=== PATIENT | female | born 1935 | race Caucasian/White ===

== ENCOUNTER → 2017-12-17 | Outpatient (CLI) | payer MEDICARE ==
[~2017-12-17] MED LIST: CELE200C; ESCI10TA; ESCI5TAB PO; FURO20TA PO; OCCUVITE; OLME20TA19; OLME20TA19 PO; POTA10TA51 PO; TRAM50TA2 PO; ZOLP-158 PO
[2017-12-17 10:10] VITALS: BP 148/57
[2017-12-17 10:40] VITALS: BP 144/54
[2017-12-17 12:11] LABS: Calcium 8.7 mg/dL (8.5-10.1); Potassium 3.4 mmol/L (3.5-5.1)
[2017-12-17 12:14] LABS: Basophils # (auto) 0 uL; Basophils % (auto) 0.7 % (0.0-2.0); Eosinophils # (auto) 0.1 uL; Eosinophils % (auto) 1.4 % (0.0-7.0); Hematocrit 36.5 % (36.0-46.0); Hemoglobin 12.2 g/dL (12.2-16.2); INR 0.9 (0.9-1.15); Lymphocytes # (auto) 1.3 uL; Lymphocytes % (auto) 20.8 % (10.0-50.0); Mean Corpuscular Hemoglobin 31.7 pg (28.0-32.0); Mean Corpuscular Hgb Conc. 33.4 g/dL (32.0-36.0); Mean Corpuscular Volume 95.1 fL (80.0-100.0); Monocytes # (auto) 0.7 uL; Monocytes % (auto) 11.8 % (0.0-12.0); Neutrophils # (auto) 4.1 uL; Neutrophils % (auto) 65.3 % (37.0-80.0); Nucleated Red Blood Cells % 0.2 %; Partial Thromboplastin Time 24.3 sec (23.78-33.04); Platelet Count (auto) 325 10^3/uL (140-450); Prothrombin Time 9.7 sec (9.27-12.13); Red Blood Cells 3.84 10^6/uL (4.0-5.20); White Blood Cell 6.3 10^3/uL (4.4-10.8)
== END | disposition home or self-care (01) ==
LOC: Rad HDHVI 10:01 → MERGE 10:01
PROVIDERS: ATTEND Internal Medicine Cardiovascular Disease
DX: Z01.818 Encounter for other preprocedural examination (principal); I70.0 Atherosclerosis of aorta; I10 Essential (primary) hypertension; E03.9 Hypothyroidism, unspecified; E78.5 Hyperlipidemia, unspecified; E78.00 Pure hypercholesterolemia, unspecified; E11.9 Type 2 diabetes mellitus without complications; M06.9 Rheumatoid arthritis, unspecified; J44.9 Chronic obstructive pulmonary disease, unspecified
CPT/HCPCS: 36415; 71046; 80048; 85025; 85610; 85730; 93005; G0463

== ENCOUNTER 2017-12-19 07:16 | Day surgery (SDC) | payer MEDICARE ==
[~2017-12-19] VITALS: Ht 157.5 cm; Wt 54.9 kg
[2017-12-19] MEDS ORDERED: IOHEXOL 350 MG/ML 100ML IJ ONE (07:25)
[2017-12-19] MEDS ORDERED: LIDOCAINE 2%HCL (LOCAL ANESTH.) INJ 20ML MDV ONE (07:25)
[2017-12-19] MEDS ORDERED: HEPARIN IN NS 1000Units/500mL 1,500 ML ONE (07:26)
[2017-12-19] MEDS ORDERED: NALOXONE HCL 0.4 MG/ML VIAL IV ONE (07:45)
[2017-12-19] MEDS ORDERED: MIDAZOLAM HCL 5 MG/ML-1ML VIAL IV ONE (07:45)
[2017-12-19] MEDS ORDERED: fentaNYL CITRATE 100 MCG/2 ML VL IV ONE (07:45)
[2017-12-19] MEDS ORDERED: FLUMAZENIL 0.1 MG/ML INJ 10ML MDV IV ONE (07:45)
[2017-12-19] MEDS ORDERED: MIDAZOLAM HCL 1MG/1ML-2 ML VIAL ONE (07:53)
[2017-12-19] MEDS ORDERED: ANGIOMAX 250 MG VIAL IV ONE (08:57)
[2017-12-19] MEDS ORDERED: SODIUM CHL 0.9% 0 ML ONE (08:57)
[2017-12-19] MEDS ORDERED: NITROGLYCERIN 0.4MG/DOSE SPRAY 4.9GM ONE (09:10)
[2017-12-19] MEDS ORDERED: METOPROLOL TARTRATE 1MG/1ML-5ML VIAL IV ONE (09:18)
== END 2017-12-19 11:50 | disposition home or self-care (01) ==
LOC: CATH 07:16 → MERGE 07:16 → CATH 11:50
PROVIDERS: ATTEND Internal Medicine Cardiovascular Disease
DX: I34.0 Nonrheumatic mitral (valve) insufficiency (principal); I10 Essential (primary) hypertension; I35.1 Nonrheumatic aortic (valve) insufficiency; I50.30 Unspecified diastolic (congestive) heart failure; M19.90 Unspecified osteoarthritis, unspecified site; I34.1 Nonrheumatic mitral (valve) prolapse; K21.9 Gastro-esophageal reflux disease without esophagitis; Z91.02 Food additives allergy status
CPT/HCPCS: 93312; 93458; C1760; C1894; J1644; J2250; J3010; J7030; Q9967; 99152; 99153

== ENCOUNTER → 2018-03-21 | Outpatient (CLI) | payer MEDICARE ==
[2018-03-21 12:29] LABS: Urine Blood Negative /uL (Negative); Urine Specific Gravity 1.019 (1.001-1.035)
== END | disposition home or self-care (01) ==
LOC: CHF HDHVI 10:05
PROVIDERS: ATTEND Internal Medicine Cardiovascular Disease
DX: N39.0 Urinary tract infection, site not specified (principal); I10 Essential (primary) hypertension; M06.9 Rheumatoid arthritis, unspecified; Z90.710 Acquired absence of both cervix and uterus; Z90.49 Acquired absence of other specified parts of digestive tract
CPT/HCPCS: 81003; 87086

== ENCOUNTER → 2018-10-31 | Outpatient (CLI) | payer MEDICARE ==
[2018-10-31 16:30] LABS: Basophils # (auto) 0.1 uL; Basophils % (auto) 0.9 % (0.0-2.0); Eosinophils # (auto) 0.5 uL; Eosinophils % (auto) 6.6 % (0.0-7.0); Hematocrit 39.2 % (36.0-46.0); Hemoglobin 13.1 g/dL (12.2-16.2); Lymphocytes # (auto) 1.2 uL; Lymphocytes % (auto) 15.7 % (10.0-50.0); Mean Corpuscular Hemoglobin 31.9 pg (28.0-32.0); Mean Corpuscular Hgb Conc. 33.4 g/dL (32.0-36.0); Mean Corpuscular Volume 95.6 fL (80.0-100.0); Monocytes # (auto) 0.8 uL; Monocytes % (auto) 9.9 % (0.0-12.0); Neutrophils # (auto) 5.1 uL; Neutrophils % (auto) 66.9 % (37.0-80.0); Nucleated Red Blood Cells % 0.3 %; Platelet Count (auto) 357 10^3/uL (140-450); Red Blood Cells 4.09 10^6/uL (4.0-5.20); Red Cell Distribution Width 14.3 % (11.8-14.3); White Blood Cell 7.6 10^3/uL (4.4-10.8)
[2018-10-31 16:38] LABS: Albumin 3.2 g/dL (3.4-5.0); Calcium 9.4 mg/dL (8.5-10.1); Potassium 4.2 mmol/L (3.5-5.1)
[2018-10-31 16:42] LABS: BUN/Creatinine Ratio 20.3; Bilirubin, Direct 0.2 mg/dL (0-0.2); Bilirubin, Total 0.6 mg/dL (0.2-1.0); Total Protein 7.1 g/dL (6.4-8.2)
== END | disposition home or self-care (01) ==
LOC: LAB 12:02
PROVIDERS: ATTEND Internal Medicine Cardiovascular Disease
DX: E03.9 Hypothyroidism, unspecified (principal); E55.9 Vitamin D deficiency, unspecified; Z79.899 Other long term (current) drug therapy
CPT/HCPCS: 36415; 80048; 80061; 80076; 82306; 83036; 84443; 85025

== ENCOUNTER → 2018-11-03 | Outpatient (CLI) | payer MEDICARE ==
[2018-11-03 16:00] LABS: Urine Blood Negative /uL (Negative); Urine Specific Gravity 1.011 (1.001-1.035)
== END | disposition home or self-care (01) ==
LOC: LAB 11:26
PROVIDERS: ATTEND Internal Medicine Cardiovascular Disease
DX: N39.0 Urinary tract infection, site not specified (principal)
CPT/HCPCS: 81003; 87086

== ENCOUNTER → 2018-11-21 | Outpatient (CLI) | payer MEDICARE ==
[~2018-11-21] VITALS: Ht 157.5 cm; Wt 54.4 kg
[~2018-11-21] MED LIST changes: +ADENOSINE 46 MG in GIVE UN-DILUTED 0 ML IV ONE; +ADENOSINE 90 MG/30 ML INJ IV ONE
== END | disposition home or self-care (01) ==
LOC: Rad HDHVI 07:22
PROVIDERS: ATTEND Internal Medicine Cardiovascular Disease
DX: I08.8 Other rheumatic multiple valve diseases (principal); R06.02 Shortness of breath; I10 Essential (primary) hypertension; R10.9 Unspecified abdominal pain; N30.90 Cystitis, unspecified without hematuria; M54.16 Radiculopathy, lumbar region; R33.9 Retention of urine, unspecified; D64.9 Anemia, unspecified
CPT/HCPCS: 78452; 93005; 93306; 96374; 96375; A9500; J0153

== ENCOUNTER 2018-12-11 17:04 | Emergency (ER) | payer MEDICARE ==
[~2018-12-11] VITALS: Ht 157.5 cm; Wt 54.9 kg
[~2018-12-11 17:04] MED LIST changes: -ADENOSINE 46 MG in GIVE UN-DILUTED 0 ML IV ONE; -ADENOSINE 90 MG/30 ML INJ IV ONE
[2018-12-11 17:55] LABS: Basophils # (auto) 0.1 uL; Basophils % (auto) 1.2 % (0.0-2.0); Eosinophils # (auto) 0.6 uL; Eosinophils % (auto) 7.7 % (0.0-7.0); Hematocrit 38.3 % (36.0-46.0); Hemoglobin 12.8 g/dL (12.2-16.2); Lymphocytes # (auto) 1.4 uL; Lymphocytes % (auto) 20.1 % (10.0-50.0); Mean Corpuscular Hemoglobin 31.7 pg (28.0-32.0); Mean Corpuscular Hgb Conc. 33.3 g/dL (32.0-36.0); Mean Corpuscular Volume 95.2 fL (80.0-100.0); Monocytes # (auto) 0.8 uL; Monocytes % (auto) 11.3 % (0.0-12.0); Neutrophils # (auto) 4.3 uL; Neutrophils % (auto) 59.7 % (37.0-80.0); Nucleated Red Blood Cells % 0.1 %; Platelet Count (auto) 292 10^3/uL (140-450); Red Blood Cells 4.03 10^6/uL (4.0-5.20); Red Cell Distribution Width 15.2 % (11.8-14.3); White Blood Cell 7.2 10^3/uL (4.4-10.8)
[2018-12-11 18:09] LABS: Albumin 2.9 g/dL (3.4-5.0); Anion Gap 8 (5-15); Blood Urea Nitrogen 15 mg/dL (7-18); Calcium 8.4 mg/dL (8.5-10.1); Carbon Dioxide 24 mmol/L (21-32); Chloride 107 mmol/L (98-107); GFR African American 122 mL/min; GFR Non-African American 101 mL/min; Glucose 112 mg/dL (74-106); Potassium 3.5 mmol/L (3.5-5.1); Sodium 139 mmol/L (136-145)
[2018-12-11 18:18] LABS: Alanine Aminotransferase 20 U/L (13-56); Alkaline Phosphatase 94 U/L (45-117); Aspartate Aminotransferase 12 U/L (15-37); Bilirubin, Total 0.4 mg/dL (0.2-1.0); Total Protein 6.7 g/dL (6.4-8.2)
[2018-12-11 19:37] LABS: INR 0.92 (0.9-1.15); Partial Thromboplastin Time 23.5 sec (23.64-32.05)
[2018-12-11] MEDS ORDERED: traMADol HCL 50 MG TAB PO ONE (20:15)
[2018-12-11 21:11] LABS: Urine Bacteria FEW /hpf (None Seen); Urine Blood Negative /uL (Negative); Urine Hyaline Cast FEW /lpf (0 - 2); Urine Mucus FEW (None Seen); Urine Specific Gravity 1.011 (1.001-1.035); Urine WBC 11 /hpf (0 - 5)
[2018-12-11 22:35] VITALS: BP 151/65
--- NOTE | 2018-12-12 00:48 | NUR ---
PATIENT RETURNED TO THE ER WITH C/O HEMATOMA ON THE LEFT FOREARM FROM THE IV ACCESS. PATIENT HAS ABOUT A KIWI SIZE SWOLLEN AREA TO THE AREA WHICH WAS WRAPPED WITH A FAMILIA WRAP LIGHTLY. PATIENT WAS EDUCATED ON FAMILIA WRAP USE INCLUDING HOW TO TELL IF IT IS TO TIGHT AND WHEN TO REWRAP. PATIENT VERBALIZED THE ARM FEELING BETTER AFTER WRAPPED AND WAS ASSISTED OUT BY HER
== END 2018-12-11 22:38 | disposition home or self-care (01) ==
LOC: EDBD 17:04 → ER 17:04
DX: S50.12XA Contusion of left forearm, initial encounter (principal); I10 Essential (primary) hypertension; J45.909 Unspecified asthma, uncomplicated; M19.90 Unspecified osteoarthritis, unspecified site; Z90.710 Acquired absence of both cervix and uterus; Z90.89 Acquired absence of other organs; W19.XXXA Unspecified fall, initial encounter; Y93.89 Activity, other specified; Y99.8 Other external cause status; Y92.89 Other specified places as the place of occurrence of the external cause
CPT/HCPCS: 36415; 70450; 71045; 80053; 81001; 84484; 85025; 85610; 85730

== ENCOUNTER → 2019-01-19 | Outpatient (CLI) | payer MEDICARE ==
[2019-01-19 12:40] LABS: Urine Blood Negative /uL (Negative)
== END | disposition home or self-care (01) ==
LOC: LAB 10:33
PROVIDERS: ATTEND Internal Medicine Cardiovascular Disease
DX: N39.0 Urinary tract infection, site not specified (principal)
CPT/HCPCS: 81003

== ENCOUNTER → 2019-01-23 | Outpatient (CLI) | payer MEDICARE ==
[~2019-01-23] MED LIST changes: -ESCI10TA; +ESCI10TA PO; +MULT-775 OR; +VALS1TAB58 PO
[2019-01-23 09:25] VITALS: BP 120/48
[2019-01-23 09:55] VITALS: BP 140/48
--- NOTE | 2019-01-23 09:55 | NUR ---
Pre-Op Discharge Summary: See e-MAR for any medications given for this visit. Pre-op orders received and carried out per MD of EKG, LABS and chest xrays. Patient given a copy of EKG with instructions to go to [facility] out patient for further follow up care.
[2019-01-23 12:26] LABS: Basophils # (auto) 0.1 uL; Basophils % (auto) 0.7 % (0.0-2.0); Eosinophils # (auto) 0.2 uL; Hematocrit 38.4 % (36.0-46.0); Hemoglobin 12.9 g/dL (12.2-16.2); Lymphocytes # (auto) 1.3 uL; Lymphocytes % (auto) 17.1 % (10.0-50.0); Mean Corpuscular Hemoglobin 31.3 pg (28.0-32.0); Mean Corpuscular Hgb Conc. 33.4 g/dL (32.0-36.0); Mean Corpuscular Volume 93.4 fL (80.0-100.0); Monocytes # (auto) 0.8 uL; Monocytes % (auto) 10.7 % (0.0-12.0); Neutrophils # (auto) 5.4 uL; Neutrophils % (auto) 69.5 % (37.0-80.0); Nucleated Red Blood Cells % 0.1 %; Platelet Count (auto) 403 10^3/uL (140-450); Red Blood Cells 4.11 10^6/uL (4.0-5.20); Red Cell Distribution Width 14.6 % (11.8-14.3); White Blood Cell 7.8 10^3/uL (4.4-10.8)
[2019-01-23 12:27] LABS: INR < 0.93 (0.9-1.15); Partial Thromboplastin Time 25.4 sec (23.64-32.05)
[2019-01-23 12:46] LABS: BUN/Creatinine Ratio 33.8; Calcium 8.7 mg/dL (8.5-10.1); Potassium 3.9 mmol/L (3.5-5.1)
== END | disposition home or self-care (01) ==
LOC: CHF HDHVI 09:05
PROVIDERS: ATTEND Internal Medicine Cardiovascular Disease
DX: Z01.812 Encounter for preprocedural laboratory examination (principal); I35.0 Nonrheumatic aortic (valve) stenosis; D64.9 Anemia, unspecified; R79.1 Abnormal coagulation profile; I10 Essential (primary) hypertension
CPT/HCPCS: 36415; 80048; 85025; 85610; 85730; 93005; G0463

== ENCOUNTER 2019-01-26 11:36 | Day surgery (SDC) | payer MEDICARE ==
[~2019-01-26] VITALS: Ht 157.5 cm; Wt 54.4 kg
[~2019-01-26 11:36] MED LIST changes: -CELE200C; -ESCI5TAB PO; -FURO20TA PO; -MULT-775 OR; -OCCUVITE; -OLME20TA19; -OLME20TA19 PO; -POTA10TA51 PO
[2019-01-26] MEDS ORDERED: MIDAZOLAM HCL 1MG/1ML-2 ML VIAL IV ONE (13:00)
== END 2019-01-26 14:55 | disposition home or self-care (01) ==
LOC: CATH 11:36
PROVIDERS: ATTEND Internal Medicine Cardiovascular Disease
DX: I34.0 Nonrheumatic mitral (valve) insufficiency (principal); I70.0 Atherosclerosis of aorta; I10 Essential (primary) hypertension; E78.5 Hyperlipidemia, unspecified; M19.90 Unspecified osteoarthritis, unspecified site; I48.0 Paroxysmal atrial fibrillation; Z79.899 Other long term (current) drug therapy
CPT/HCPCS: 93312; J2250; J7040

== ENCOUNTER 2019-04-01 12:28 | Inpatient (IN) | payer MEDICARE | END 2019-04-10 19:19 | disposition home or self-care (01) | LOC: ER 12:28 → TELE 12:29 → TELE-WESTW 21:02 | PROC: 0TJB8ZZ Inspection of Bladder, Via Natural or Artificial Opening Endoscopic (ICD-10-PCS; principal; 2019-04-06 07:44) | PROC: BT1D1ZZ Fluoroscopy of Right Kidney, Ureter and Bladder using Low Osmolar Contrast (ICD-10-PCS; 2019-04-06 07:44) | PROC: 0TB68ZX Excision of Right Ureter, Via Natural or Artificial Opening Endoscopic, Diagnostic (ICD-10-PCS; 2019-04-06 07:44) | DX: A41.9 Sepsis, unspecified organism (principal); N39.0 Urinary tract infection, site not specified; E44.0 Moderate protein-calorie malnutrition; E87.1 Hypo-osmolality and hyponatremia; N13.30 Unspecified hydronephrosis; K57.32 Diverticulitis of large intestine without perforation or abscess without bleeding; R64 Cachexia; N18.3 Chronic kidney disease, stage 3 (moderate); I12.9 Hypertensive chronic kidney disease with stage 1 through stage 4 chronic kidney disease, or unspecified chronic kidney disease; D64.9 Anemia, unspecified; I34.0 Nonrheumatic mitral (valve) insufficiency; J45.909 Unspecified asthma, uncomplicated; K76.89 Other specified diseases of liver; Z90.710 Acquired absence of both cervix and uterus; R60.9 Edema, unspecified; I70.8 Atherosclerosis of other arteries; F32.9 Major depressive disorder, single episode, unspecified; M54.5 Low back pain; G89.29 Other chronic pain; N28.89 Other specified disorders of kidney and ureter ==

== ENCOUNTER → 2019-05-27 | Outpatient (CLI) | payer MEDICARE ==
[~2019-05-27] VITALS: Ht 30.5 cm; Wt 0.5 kg
[~2019-05-27] MED LIST changes: +CYANOCOBALAMIN (B-12) 1000 MCG/1 ML VIAL IM ONE; +CYANOCOBALAMIN (B-12) 1000 MCG/1 ML VIAL ONE; -ESCI10TA PO; +ESCI10TA53 PO; +MULT-775 PO; +MVI in SODIUM CHLORIDE 0.9% 1,000 ML IVB ONE; +MVI in SODIUM CHLORIDE 0.9% 1,010 ML ONE
[2019-05-27 10:09] VITALS: BP 122/51
--- NOTE | 2019-05-27 10:20 | NUR ---
IV insertion IV access obtained, via clean sterile technique by inserting 22 gauge catheter at LFA after 1 attempt by Jovanni PAGAN. IV secured properly. No trauma to site. Patient tolerated well. NOTE:
[2019-05-27 11:59] LABS: Urine Blood 1+ /uL (Negative); Urine Specific Gravity 1.014 (1.001-1.035)
--- NOTE | 2019-05-27 13:05 | NUR ---
Discharge Instructions See e-MAR for any mediations given with this visit. Patient education given on disease process. Patient verbalized understanding. Previous labs reviewed. Patient discharged in stable condition with after care instructions and follow up appointment. NOTE INFUSED 350MLS OF MVI BAG [id number]. PATIENT INSTRUCTED TO COME BACK TOMORROW TO CONTINUE INFUSION OF MVI. IV LEFT IN PLACE AND WRAPPED TO PREVENT INJURY. ADMINISTERED HEPARIN IVP BY PRIYA PAGAN. ADMINISTERED VITAMIN B IM BY CELSO GALLOWAY.
[2019-05-27 13:25] VITALS: BP 117/42
[2019-05-27 16:11] LABS: BUN/Creatinine Ratio 21.1; Calcium 8.9 mg/dL (8.5-10.1); Magnesium 1.8 mg/dL (1.6-2.6); Potassium 3.5 mmol/L (3.5-5.1)
== END | disposition home or self-care (01) ==
LOC: LAB 09:25
PROVIDERS: ATTEND Internal Medicine Cardiovascular Disease
DX: E86.0 Dehydration (principal); I13.0 Hypertensive heart and chronic kidney disease with heart failure and stage 1 through stage 4 chronic kidney disease, or unspecified chronic kidney disease; I50.9 Heart failure, unspecified; N18.3 Chronic kidney disease, stage 3 (moderate); I25.10 Atherosclerotic heart disease of native coronary artery without angina pectoris; I48.91 Unspecified atrial fibrillation; N39.0 Urinary tract infection, site not specified; E83.40 Disorders of magnesium metabolism, unspecified; R53.83 Other fatigue; F41.9 Anxiety disorder, unspecified; F32.9 Major depressive disorder, single episode, unspecified; E03.9 Hypothyroidism, unspecified; E44.0 Moderate protein-calorie malnutrition; G89.29 Other chronic pain; J45.909 Unspecified asthma, uncomplicated; M19.90 Unspecified osteoarthritis, unspecified site; Z90.49 Acquired absence of other specified parts of digestive tract; Z90.710 Acquired absence of both cervix and uterus; Z79.899 Other long term (current) drug therapy
CPT/HCPCS: 36415; 80048; 81003; 83735; 87086; 96365; 96366; 96372; G0463; J1642; J3411; J3420; J3475

== ENCOUNTER → 2019-05-28 | Outpatient (CLI) | payer MEDICARE ==
[~2019-05-28] VITALS: Ht 30.5 cm; Wt 0.5 kg
[~2019-05-28] MED LIST changes: -CYANOCOBALAMIN (B-12) 1000 MCG/1 ML VIAL IM ONE; -CYANOCOBALAMIN (B-12) 1000 MCG/1 ML VIAL ONE; +MAGNESIUM SULFATE 1GM/100ML 100 ML IV ONE; -MVI in SODIUM CHLORIDE 0.9% 1,000 ML IVB ONE; +MVI in SODIUM CHLORIDE 0.9% 500 ML IVB ONE
--- NOTE | 2019-05-28 11:25 | NUR ---
PT. TO [facility] CLINIC WITH SPOUSE FOR REPEAT MED INFUSION PER DR. BENAVIDES. EXISTING HEPLOCK, LEFT INNER WRIST, SITE BENIGN, FLUSHES EASILY WITH 10 CC .9NS. MD ORDERS RECEIVED AND CARRIED OUT. PT. STATE SLIGHT IMPROVEMENT IN SYMPTOMS SINCE YESTERDAY, BUT C/O SLIGHT NASAL CONGESTION.
[2019-05-28 11:30] VITALS: BP 137/53
--- NOTE | 2019-05-28 11:35 | NUR ---
MEDS: BANANA BAG STARTED AT 250 CC/HR PER MD ORDER.
--- NOTE | 2019-05-28 12:33 | NUR ---
MEDS: MGSO4 1 GM IVPB STARTED PER MD ORDER PT. RESTING WITH NO C/O.
--- NOTE | 2019-05-28 13:35 | NUR ---
MEDS: BANANA BAG COMPLETED AND MAG RIDER COMPLETED . PT. TOLERATED PROCEDURE WELL. SPOUSE AT BEDSIDE FOR SUPPORT. PREVIOUS LABS OF YESTERDAY REVIEWED WITH PT. AND SPOUSE, WITH ADDITIONAL FOLLOW UP ON UA C&S TO BE DONE TOMORROW, WITH FOLLOW UP CALL TO PT. BY THIS RN.
--- NOTE | 2019-05-28 13:45 | NUR ---
LABS: CBC DRAWN AND SENT POST INFUSION PER MD ORDER.
--- NOTE | 2019-05-28 13:55 | NUR ---
IV removal IV DC'd with sterile technique, catheter fully intact. Pressure dressing applied to site. Patient tolerated procedure well. Discharged with aftercare instructions per MD. NOTE:
[2019-05-28 14:00] VITALS: BP 150/59
--- NOTE | 2019-05-28 14:00 | NUR ---
Discharge Instructions See e-MAR for any mediations given with this visit. Patient education given on disease process. Patient verbalized understanding. Previous labs reviewed. Patient discharged in stable condition with after care instructions and follow up appointment. FOLLOW UP APPT. TO BE GIVEN TO PT TOMORROW AFTER LAB REVIEW WITH DR. BENAVIDES.
[2019-05-28 15:29] LABS: Basophils # (auto) 0.1 uL; Basophils % (auto) 0.7 % (0.0-2.0); Eosinophils # (auto) 1.1 uL; Eosinophils % (auto) 13.1 % (0.0-7.0); Hematocrit 27.9 % (36.0-46.0); Hemoglobin 9.4 g/dL (12.2-16.2); Lymphocytes # (auto) 1.7 uL; Lymphocytes % (auto) 20.4 % (10.0-50.0); Mean Corpuscular Hgb Conc. 33.6 g/dL (32.0-36.0); Mean Corpuscular Volume 89.3 fL (80.0-100.0); Monocytes # (auto) 0.8 uL; Neutrophils # (auto) 4.6 uL; Neutrophils % (auto) 55.8 % (37.0-80.0); Nucleated Red Blood Cells % 0.1 %; Platelet Count (auto) 420 10^3/uL (140-450); Red Blood Cells 3.12 10^6/uL (4.0-5.20); Red Cell Distribution Width 14.1 % (11.8-14.3); White Blood Cell 8.2 10^3/uL (4.4-10.8)
== END | disposition home or self-care (01) ==
LOC: CHF HDHVI 11:30
PROVIDERS: ATTEND Internal Medicine Cardiovascular Disease
DX: E86.0 Dehydration (principal); C68.0 Malignant neoplasm of urethra; I13.0 Hypertensive heart and chronic kidney disease with heart failure and stage 1 through stage 4 chronic kidney disease, or unspecified chronic kidney disease; I50.9 Heart failure, unspecified; N18.3 Chronic kidney disease, stage 3 (moderate); I25.10 Atherosclerotic heart disease of native coronary artery without angina pectoris; I48.91 Unspecified atrial fibrillation; D64.9 Anemia, unspecified; F41.9 Anxiety disorder, unspecified; E03.9 Hypothyroidism, unspecified; F32.9 Major depressive disorder, single episode, unspecified; G89.29 Other chronic pain; J45.909 Unspecified asthma, uncomplicated; M19.90 Unspecified osteoarthritis, unspecified site; E44.0 Moderate protein-calorie malnutrition; Z79.899 Other long term (current) drug therapy; Z90.710 Acquired absence of both cervix and uterus
CPT/HCPCS: 36415; 85025; 96365; 96366; 96368; G0463; J3411; J3475

== ENCOUNTER → 2019-06-12 | Outpatient (CLI) | payer MEDICARE ==
[~2019-06-12] MED LIST changes: -MAGNESIUM SULFATE 1GM/100ML 100 ML IV ONE; -MVI in SODIUM CHLORIDE 0.9% 1,010 ML ONE; -MVI in SODIUM CHLORIDE 0.9% 500 ML IVB ONE
[2019-06-12 16:00] LABS: Urine Blood 2+ /uL (Negative); Urine Specific Gravity 1.017 (1.001-1.035)
== END | disposition home or self-care (01) ==
LOC: LAB 13:59
PROVIDERS: ATTEND Internal Medicine Cardiovascular Disease
DX: N39.0 Urinary tract infection, site not specified (principal)
CPT/HCPCS: 81003; 87086

== ENCOUNTER → 2019-06-22 | Outpatient (CLI) | payer MEDICARE ==
[2019-06-22 16:32] LABS: Urine Blood 1+ /uL (Negative)
== END | disposition home or self-care (01) ==
LOC: LAB 11:17
PROVIDERS: ATTEND Internal Medicine Cardiovascular Disease
DX: N39.0 Urinary tract infection, site not specified (principal)
CPT/HCPCS: 81003; 87086

== ENCOUNTER → 2019-06-24 | Outpatient (CLI) | payer MEDICARE ==
[~2019-06-24] MED LIST changes: +cefTRIAXone 1GM/50ML D5W 50 ML IV ONE
--- NOTE | 2019-06-24 11:50 | NUR ---
PT. TO CLINIC FROM BACK OFFICE WITH ORDERS FROM DR. BENAVIDES FOR IV ABX. ORDERS RECEIVED AND CARRIED OUT. SPOUSE AT CHAIRSIDE FOR SUPPORT. PT. AOCorky, PWD.
[2019-06-24 11:55] VITALS: BP 122/60
--- NOTE | 2019-06-24 12:05 | NUR ---
IV insertion IV access obtained, via clean sterile technique by inserting 22 gauge catheter at after attempt(s). IV secured properly. No trauma to site. Patient tolerated procedure well. LABS SENT PER MD ORDER.
--- NOTE | 2019-06-24 12:16 | NUR ---
MEDS: ROCEPHIN 1 GM IVPB STARTED PER MD ORDER.
[2019-06-24 12:50] VITALS: BP 124/66
--- NOTE | 2019-06-24 12:50 | NUR ---
IV removal IV DC'd with sterile technique, catheter fully intact. Pressure dressing applied to site. Patient tolerated procedure well. Discharged with aftercare instructions per MD. NOTE: PT. TO FOLLOW UP WITH DR. KENNEDY SARAH.
[2019-06-24 16:00] LABS: Basophils # (auto) 0.1 uL; Basophils % (auto) 0.9 % (0.0-2.0); Eosinophils # (auto) 1.3 uL; Eosinophils % (auto) 13.7 % (0.0-7.0); Hematocrit 31.8 % (36.0-46.0); Hemoglobin 11.2 g/dL (12.2-16.2); Lymphocytes # (auto) 2.2 uL; Lymphocytes % (auto) 24.1 % (10.0-50.0); Mean Corpuscular Hemoglobin 31.5 pg (28.0-32.0); Mean Corpuscular Hgb Conc. 35.1 g/dL (32.0-36.0); Mean Corpuscular Volume 89.8 fL (80.0-100.0); Monocytes # (auto) 0.8 uL; Monocytes % (auto) 8.3 % (0.0-12.0); Neutrophils # (auto) 4.9 uL; Nucleated Red Blood Cells % 0.1 %; Platelet Count (auto) 426 10^3/uL (140-450); Red Blood Cells 3.54 10^6/uL (4.0-5.20); Red Cell Distribution Width 14.8 % (11.8-14.3); White Blood Cell 9.3 10^3/uL (4.4-10.8)
[2019-06-24 16:05] LABS: BUN/Creatinine Ratio 31.5; Calcium 9.3 mg/dL (8.5-10.1); Magnesium 2.2 mg/dL (1.6-2.6); Potassium 4.6 mmol/L (3.5-5.1)
== END | disposition home or self-care (01) ==
LOC: CHF HDHVI 11:50
PROVIDERS: ATTEND Internal Medicine Cardiovascular Disease
DX: N39.0 Urinary tract infection, site not specified (principal); I13.0 Hypertensive heart and chronic kidney disease with heart failure and stage 1 through stage 4 chronic kidney disease, or unspecified chronic kidney disease; N18.3 Chronic kidney disease, stage 3 (moderate); I50.9 Heart failure, unspecified; I25.10 Atherosclerotic heart disease of native coronary artery without angina pectoris; I48.91 Unspecified atrial fibrillation; D64.9 Anemia, unspecified; E83.40 Disorders of magnesium metabolism, unspecified; J45.909 Unspecified asthma, uncomplicated; F41.9 Anxiety disorder, unspecified; E03.9 Hypothyroidism, unspecified; F32.9 Major depressive disorder, single episode, unspecified; E44.0 Moderate protein-calorie malnutrition; G89.29 Other chronic pain; Z90.49 Acquired absence of other specified parts of digestive tract; Z90.710 Acquired absence of both cervix and uterus; Z79.899 Other long term (current) drug therapy
CPT/HCPCS: 36415; 80048; 83735; 85025; 96365; G0463; J0696

== ENCOUNTER → 2019-07-08 | Outpatient (CLI) | payer MEDICARE ==
[~2019-07-08] MED LIST changes: +IOHEXOL 350 MG/ML 100ML IJ ONE; -cefTRIAXone 1GM/50ML D5W 50 ML IV ONE
[2019-07-08 12:58] VITALS: BP 140/53
--- NOTE | 2019-07-08 13:05 | NUR ---
IV insertion IV access obtained BY BARBRA PAGAN, via clean sterile technique by inserting [22] gauge catheter at [R AC] after [1] attempt(s). IV secured properly. No trauma to site. Patient tolerated procedure well.
--- NOTE | 2019-07-08 14:22 | NUR ---
IV removal IV DC'd with sterile technique, catheter fully intact. Pressure dressing applied to site. Patient tolerated procedure well.
[2019-07-08 14:23] VITALS: BP 151/66
--- NOTE | 2019-07-08 14:23 | NUR ---
[facility] CL[facility]IC Discharge Instructions See e-MAR for any mediations given with this visit. Patient education given on disease process. Patient verbalized understanding. Previous labs reviewed. Patient discharged in stable condition with after care instructions and follow up appointment. NOTES PT EDUCATED ON IMPORTANCE OF INCREASING ORAL HYDRATION OVER THE NEXT 24 HOURS. PT/PT FAMILY VERBALIZED UNDERSTANDING.
== END | disposition home or self-care (01) ==
LOC: Rad HDHVI 12:31
PROVIDERS: ATTEND Internal Medicine Cardiovascular Disease
DX: I08.8 Other rheumatic multiple valve diseases (principal); I70.0 Atherosclerosis of aorta; I11.9 Hypertensive heart disease without heart failure; K76.89 Other specified diseases of liver; K57.90 Diverticulosis of intestine, part unspecified, without perforation or abscess without bleeding; K42.9 Umbilical hernia without obstruction or gangrene; E78.5 Hyperlipidemia, unspecified; K21.9 Gastro-esophageal reflux disease without esophagitis; N39.0 Urinary tract infection, site not specified; M54.5 Low back pain; M79.605 Pain in left leg; M79.604 Pain in right leg; R94.4 Abnormal results of kidney function studies; R10.9 Unspecified abdominal pain; R00.2 Palpitations; R06.02 Shortness of breath; R42 Dizziness and giddiness; Z90.710 Acquired absence of both cervix and uterus
CPT/HCPCS: 36415; 74177; 82565; 87086; 87088; 87186; 93306; G0463; Q9967

== ENCOUNTER → 2019-07-23 | Outpatient (CLI) | payer MEDICARE ==
[~2019-07-23] MED LIST changes: -IOHEXOL 350 MG/ML 100ML IJ ONE
[2019-07-23 11:54] LABS: Urine Blood 1+ /uL (Negative); Urine Specific Gravity 1.012 (1.001-1.035)
== END | disposition home or self-care (01) ==
LOC: LAB 10:23
PROVIDERS: ATTEND Internal Medicine Cardiovascular Disease
DX: N39.0 Urinary tract infection, site not specified (principal)
CPT/HCPCS: 81003; 87086

== ENCOUNTER → 2019-07-27 | Outpatient (CLI) | payer MEDICARE ==
[~2019-07-27] MED LIST changes: +LEVOFLOXACIN 500MG 100 ML IV ONE
[2019-07-27 12:40] VITALS: BP 157/71
[2019-07-27 13:53] VITALS: BP 115/50
== END | disposition home or self-care (01) ==
LOC: CHF HDHVI 12:49
PROVIDERS: ATTEND Internal Medicine Cardiovascular Disease
DX: N39.0 Urinary tract infection, site not specified (principal); I13.0 Hypertensive heart and chronic kidney disease with heart failure and stage 1 through stage 4 chronic kidney disease, or unspecified chronic kidney disease; N18.3 Chronic kidney disease, stage 3 (moderate); I50.9 Heart failure, unspecified; I25.10 Atherosclerotic heart disease of native coronary artery without angina pectoris; I48.91 Unspecified atrial fibrillation; K21.9 Gastro-esophageal reflux disease without esophagitis; E78.5 Hyperlipidemia, unspecified; J45.909 Unspecified asthma, uncomplicated; F41.9 Anxiety disorder, unspecified; E03.9 Hypothyroidism, unspecified; F32.9 Major depressive disorder, single episode, unspecified; G89.29 Other chronic pain; Z90.710 Acquired absence of both cervix and uterus; Z90.49 Acquired absence of other specified parts of digestive tract; Z79.899 Other long term (current) drug therapy
CPT/HCPCS: 96365; G0463; J1956

== ENCOUNTER → 2019-09-04 | Outpatient (CLI) | payer MEDICARE ==
[~2019-09-04] MED LIST changes: -LEVOFLOXACIN 500MG 100 ML IV ONE
[2019-09-04 16:21] LABS: Urine Blood Negative /uL (Negative); Urine Specific Gravity 1.016 (1.001-1.035)
== END | disposition home or self-care (01) ==
LOC: LAB 13:36
PROVIDERS: ATTEND Internal Medicine Cardiovascular Disease
DX: N39.0 Urinary tract infection, site not specified (principal)
CPT/HCPCS: 81003; 87086

== ENCOUNTER → 2019-09-25 | Outpatient (CLI) | payer MEDICARE | END | disposition home or self-care (01) | LOC: LAB 11:27 | PROVIDERS: ATTEND Internal Medicine Cardiovascular Disease | DX: R94.4 Abnormal results of kidney function studies (principal) | CPT/HCPCS: 36415; 82565 ==

== ENCOUNTER → 2019-09-28 | Outpatient (CLI) | payer MEDICARE ==
[~2019-09-28] MED LIST changes: +IOHEXOL 350 MG/ML 100ML IJ ONE; +READI-CAT 2 (BARIUM SULF)(VANILLA SMOOTHIE) 450ML ONE
[2019-09-28 09:10] VITALS: BP 136/86
[2019-09-28 10:17] VITALS: BP 139/56
== END | disposition home or self-care (01) ==
LOC: Rad HDHVI 08:57
PROVIDERS: ATTEND Internal Medicine Cardiovascular Disease
DX: M48.061 Spinal stenosis, lumbar region without neurogenic claudication (principal); M51.36 Other intervertebral disc degeneration, lumbar region; I70.0 Atherosclerosis of aorta; I70.8 Atherosclerosis of other arteries; N39.0 Urinary tract infection, site not specified; M54.5 Low back pain; R16.0 Hepatomegaly, not elsewhere classified; K76.0 Fatty (change of) liver, not elsewhere classified; K76.89 Other specified diseases of liver; K86.89 Other specified diseases of pancreas; K86.2 Cyst of pancreas; N26.1 Atrophy of kidney (terminal); N28.89 Other specified disorders of kidney and ureter; K57.30 Diverticulosis of large intestine without perforation or abscess without bleeding; K42.9 Umbilical hernia without obstruction or gangrene; M85.88 Other specified disorders of bone density and structure, other site
CPT/HCPCS: 74177; G0463; Q9967

== ENCOUNTER → 2019-11-13 | Outpatient (CLI) | payer MEDICARE ==
[~2019-11-13] MED LIST changes: -IOHEXOL 350 MG/ML 100ML IJ ONE; -READI-CAT 2 (BARIUM SULF)(VANILLA SMOOTHIE) 450ML ONE
[2019-11-13 12:02] LABS: Urine Blood Negative /uL (Negative); Urine Specific Gravity 1.014 (1.001-1.035)
== END | disposition home or self-care (01) ==
LOC: LAB 10:10
PROVIDERS: ATTEND Internal Medicine Cardiovascular Disease
DX: N39.0 Urinary tract infection, site not specified (principal)
CPT/HCPCS: 81003; 87086

== ENCOUNTER → 2019-11-30 | Outpatient (CLI) | payer MEDICARE | END | disposition home or self-care (01) | LOC: Rad HDHVI 12:13 | PROVIDERS: ATTEND Internal Medicine Cardiovascular Disease | DX: J34.2 Deviated nasal septum (principal); J32.9 Chronic sinusitis, unspecified | CPT/HCPCS: 70220 ==

== ENCOUNTER → 2019-12-28 | Outpatient (CLI) | payer MEDICARE ==
[2019-12-28 16:05] LABS: Urine Blood TRACE /uL (Negative); Urine Specific Gravity 1.014 (1.001-1.035)
== END | disposition home or self-care (01) ==
LOC: LAB 12:51
PROVIDERS: ATTEND Internal Medicine Cardiovascular Disease
DX: N39.0 Urinary tract infection, site not specified (principal)
CPT/HCPCS: 81003; 87086

== ENCOUNTER → 2019-12-29 | Outpatient (CLI) | payer MEDICARE ==
[~2019-12-29] VITALS: Ht 30.5 cm; Wt 49.9 kg
[~2019-12-29] MED LIST changes: +CYANOCOBALAMIN (B-12) 1000 MCG/1 ML VIAL IM ONE; +CYANOCOBALAMIN (B-12) 1000 MCG/1 ML VIAL ONE; +IOHEXOL 350 MG/ML 100ML IJ ONE; +READI-CAT 2 (BARIUM SULF)(VANILLA SMOOTHIE) 450ML ONE
[2019-12-29 09:35] VITALS: BP 129/54
[2019-12-29 11:20] VITALS: BP 131/83
== END | disposition home or self-care (01) ==
LOC: Rad HDHVI 09:26
PROVIDERS: ATTEND Internal Medicine Cardiovascular Disease
DX: R94.4 Abnormal results of kidney function studies (principal); R53.83 Other fatigue; R59.1 Generalized enlarged lymph nodes; K86.89 Other specified diseases of pancreas
CPT/HCPCS: 36415; 74177; 82565; 96372; G0463; J3420; Q9967

== ENCOUNTER 2020-03-15 10:01 | Inpatient (IN) | payer MEDICARE ==
[2020-03-10 14:17] LABS: Hemoglobin 9.8 g/dL (12.2-16.2); Mean Corpuscular Hemoglobin 29.3 pg (28.0-32.0); Mean Corpuscular Hgb Conc. 32.6 g/dL (32.0-36.0); Platelet Count (auto) 368 10^3/uL (140-450); Red Blood Cells 3.34 10^6/uL (4.0-5.20); Red Cell Distribution Width 14.5 % (11.8-14.3); White Blood Cell 6.3 10^3/uL (4.4-10.8)
[2020-03-10 14:21] LABS: Urine Bacteria NONE SEEN /hpf (None Seen); Urine Blood Negative /uL (Negative); Urine Hyaline Cast MOD /lpf (0 - 2); Urine Mucus FEW (None Seen); Urine Specific Gravity 1.012 (1.001-1.035); Urine WBC 12 /hpf (0 - 5)
[2020-03-10 14:23] LABS: Basophils % (manual) 0 (0.0-2.0); Blast Cells 0; Metamyelocytes % 0; Myelocytes % 0; Promyelocytes % 0; Reactive Lymphocytes 0
[2020-03-10 14:28] LABS: Albumin 3.2 g/dL (3.4-5.0); Calcium 9.1 mg/dL (8.5-10.1)
[2020-03-10 14:32] LABS: Bilirubin, Total 0.4 mg/dL (0.2-1.0); Total Protein 7.3 g/dL (6.4-8.2)
[2020-03-10 14:42] LABS: INR 0.97 (0.9-1.15); Partial Thromboplastin Time 24.5 sec (23.0-31.2)
[2020-03-10 17:01] LABS: Band Neutrophils % (manual) 1; Eosinophils % (manual) 17 (0-7); Lymphocytes % (manual) 27 (10.0-50.0); Monocytes % (manual) 6 (0-12)
[~2020-03-15] VITALS: Ht 157.5 cm; Wt 49.8 kg
[~2020-03-15 10:01] MED LIST changes: +CETI1TAB36 PO; -CYANOCOBALAMIN (B-12) 1000 MCG/1 ML VIAL IM ONE; -CYANOCOBALAMIN (B-12) 1000 MCG/1 ML VIAL ONE; -ESCI10TA53 PO; +HYDR-4833 PO; +HYDR200T36 PO; -IOHEXOL 350 MG/ML 100ML IJ ONE; -MULT-775 PO; -READI-CAT 2 (BARIUM SULF)(VANILLA SMOOTHIE) 450ML ONE
[2020-03-15] MEDS ORDERED: MANNITOL FTV 25% 12.5 GM/50 ML 50 ML IV ONE (10:46)
[2020-03-15] MEDS ORDERED: BUPIVACAINE 0.25% INJ 50ML VIAL ONE (10:46)
[2020-03-15] MEDS ORDERED: LIDOCAINE W/ EPINEPHRINE 1% 20ML VIAL ONE (10:46)
[2020-03-15] MEDS ORDERED: MORPHINE SULF INJ 2 MG/ML SYRINGE 1ML IV PRN (11:15)
[2020-03-15] MEDS ORDERED: NITROGLYCERIN 0.4 MG SL TAB SL PRN (11:15)
[2020-03-15] MEDS ORDERED: HYDROcodone-ACET 5/325MG TAB PO PRN (16:45)
--- NOTE | 2020-03-15 16:54 | NUR ---
Telemetry admit from [facility] YUN L admitted to Telemetry unit after SBAR received from LATASHA Arredondo. Patient oriented to TONYA EMERY RN primary RN, unit, room, bed, and unit policies regarding patient care and visiting hours. Patient now on continuous telemetry monitoring, tele box #27 and telemetry reading on arrival to unit is ST 107 bpm. Patient placed on bedside oxygen @ 2l n/c, weighed by bedscale and encouraged to call if they need something.Bed in lowest/locked position, bed rails up x2, call light within reach. All questions and concerns addressed, patient verbalized understanding.
[2020-03-15] MEDS ORDERED: hydrALAZINE HCL 20 MG/ML VL IV PRN (17:00)
[2020-03-15 17:01] VITALS: BP 168/88
[2020-03-15] MEDS: traMADol HCL 50 MG TAB PO PRN ×2 (20:45→22:38)
--- NOTE | 2020-03-15 20:53 | NUR ---
open note assumed care of pt, upon etnerinf room pt awake, alert and oriented x4. pt on 2L nc no distress noted or expressed. pt oriented to this nurse, updated on plan of care. pt reports some chronic back pain, to which this nurse will medicate per MD and MAR. pt bed locked, low and 2x rails up. call light in reach, this nurse to round q1hr and prn. pt encouraged to call as needed, for assistance or any concerns.
[2020-03-15 21:24] VITALS: BP 141/74
[2020-03-15] MEDS: ZOLPIDEM TARTRATE 5 MG TAB PO SCH (22:38)
[2020-03-16] MEDS: traMADol HCL 50 MG TAB PO PRN ×2 (04:32→12:55)
[2020-03-16 05:00] VITALS: BP 145/61
[2020-03-16 07:38] LABS: Urine Bacteria FEW /hpf (None Seen); Urine Blood 1+ /uL (Negative); Urine Mucus FEW (None Seen); Urine Specific Gravity 1.016 (1.001-1.035); Urine WBC 613 /hpf (0 - 5); Urine WBC Clumps PRESENT /hpf (None Seen)
--- NOTE | 2020-03-16 08:18 | NUR ---
OPENING SHIFT NOTE Assumed care of patient, awake and alert. No S/S of distress/SOB. Instructed on POC and to call for assist PRN, call light within reach, will continue to monitor for changes Q1hr and PRN.
[2020-03-16 09:00] VITALS: BP 153/73
[2020-03-16] MEDS ORDERED: METOPROLOL SUCCINATE XL 50 MG TAB PO SCH (10:00)
[2020-03-16 13:00] VITALS: BP 139/70
[2020-03-16] MEDS: METOPROLOL SUCCINATE XL 50 MG TAB PO SCH ×2 (13:30→21:10)
[2020-03-16] MEDS ORDERED: EPOETIN ALFA 2,000 UNIT/1 ML VIAL SC ONE (13:45)
[2020-03-16] MEDS ORDERED: EPOETIN ALFA 10,000 UNIT/1 ML VIAL SC ONE (14:00)
[2020-03-16 17:00] VITALS: BP 149/73
--- NOTE | 2020-03-16 19:30 | NUR ---
Opening Shift Note Assumed care of patient, awake and alert. No S/S of pain. Reported nausea. Day RN stated he still waiting for Dr. Pérez's order. Instructed on POC and to call for assist PRN, will continue to monitor for changes Q1hr and PRN.
--- NOTE | 2020-03-16 20:50 | NUR ---
Spoke with LATASHA Weston over the phone regarding patient's med as per Dr. Pérez. New orders received.
[2020-03-16] MEDS ORDERED: METOCLOPRAMIDE HCL 5MG/ml INJ 2ml VIAL IV PRN (21:00)
[2020-03-16] MEDS: ZOLPIDEM TARTRATE 5 MG TAB PO SCH (21:09)
[2020-03-16] MEDS: FERROUS SULFATE 300 MG/5 ML ORAL LIQ GT SCH (21:09)
[2020-03-16] MEDS: SODIUM CHLORIDE 0.9% 1,000 ML IV SCH (21:10)
[2020-03-16 22:00] VITALS: BP 132/64
[2020-03-17 05:18] VITALS: BP 133/61
--- NOTE | 2020-03-17 07:55 | NUR ---
Call to Pre-op This RN called Jerrica in pre-op, patient is not on the schedule for today. Will update patient on plan of care. Will continue to monitor Q1 hour and PRN.
--- NOTE | 2020-03-17 08:01 | NUR ---
Opening Shift Note Assumed care of patient, awake and alert and oriented to person, place, situation. No S/S of distress/SOB and pt. denies pain. Call light within reach, bedrails up x2. Instructed on POC and to call for stand by assist to the restroom, will continue to monitor for changes Q1hr and PRN.
[2020-03-17 08:28] LABS: Basophils # (auto) 0.1 10 ^3/uL (0-0.2); Basophils % (auto) 0.8 % (0.0-2.0); Eosinophils # (auto) 0.8 10 ^3/uL (0-0.8); Eosinophils % (auto) 11.6 % (0.0-7.0); Hematocrit 26.2 % (36.0-46.0); Hemoglobin 8.8 g/dL (12.2-16.2); Lymphocytes # (auto) 0.8 10 ^3/uL (0.4-5.4); Lymphocytes % (auto) 12.2 % (10.0-50.0); Mean Corpuscular Hemoglobin 30.2 pg (28.0-32.0); Mean Corpuscular Hgb Conc. 33.6 g/dL (32.0-36.0); Mean Corpuscular Volume 89.9 fL (80.0-100.0); Monocytes # (auto) 0.6 10 ^3/uL (0-1.3); Monocytes % (auto) 8.3 % (0.0-12.0); Neutrophils # (auto) 4.7 10 ^3/uL (1.6-8.6); Neutrophils % (auto) 67.1 % (37.0-80.0); Platelet Count (auto) 251 10^3/uL (140-450); Red Blood Cells 2.91 10^6/uL (4.0-5.20); Red Cell Distribution Width 14.2 % (11.8-14.3)
[2020-03-17 08:43] LABS: INR 0.98 (0.9-1.15)
[2020-03-17 08:45] LABS: BUN/Creatinine Ratio 21.2; Calcium 8.7 mg/dL (8.5-10.1); Potassium 3.6 mmol/L (3.5-5.1)
[2020-03-17 09:00] VITALS: BP 155/64
[2020-03-17] MEDS: FERROUS SULFATE 300 MG/5 ML ORAL LIQ GT SCH (09:21)
[2020-03-17] MEDS: METOPROLOL SUCCINATE XL 50 MG TAB PO SCH (09:22)
[2020-03-17] MEDS ORDERED: levoFLOXacin 500MG 100 ML IV SCH (10:00)
[2020-03-17] MEDS: SODIUM CHLORIDE 0.9% 1,000 ML IV SCH (10:20)
--- NOTE | 2020-03-17 12:15 | NUR ---
Call from Dr. Clint GRAYSON stated they will not be able to perform surgery on patient until next week, ok to discharge at this time. Will update Dr. Pérez. Will continue to monitor.
--- NOTE | 2020-03-17 12:59 | NUR ---
Dr. Pérez at bedside MD discussing plan of care with patient and this RN. Patient to discharge home today and follow up with Dr. Pérez out patient to reschedule surgery. Patient verbalized understanding. Will continue to monitor.
[2020-03-17 13:00] VITALS: BP 142/68
[2020-03-17 14:51] VITALS: BP 155/64
--- NOTE | 2020-03-17 15:20 | NUR ---
Prescriptions This RN called patients prescriptions into patients preferred pharmacy.
--- NOTE | 2020-03-17 16:23 | NUR ---
DISCHARGE Discharge instructions given as ordered. Encourage to follow up with PMD as instructed. All questions and concerns addressed. Patient verbalized understanding. Medication reconciliation form completed and copy given to patient. New prescriptions called in to preferred pharmacy, patient instructed to pick them up. IV removed with catheter intact, pressure dressing applied. Telemetry unit returned to ICU. Patient taken to vehicle via wheelchair with all personal belongings, accompanied by staff member. No signs or symptoms of distress noted at time of departure.
== END 2020-03-17 14:00 | disposition home or self-care (01) | DRG 871 ==
LOC: OVERFLOW 10:01 → EDSTATUS 10:45 → TELE-CENTR 16:48
PROVIDERS: ADMIT Urology; ATTEND Urology
DX: A41.9 Sepsis, unspecified organism (principal); E43 Unspecified severe protein-calorie malnutrition; I47.1 Supraventricular tachycardia; C79.00 Secondary malignant neoplasm of unspecified kidney and renal pelvis; E87.1 Hypo-osmolality and hyponatremia; C66.1 Malignant neoplasm of right ureter; N13.6 Pyonephrosis; Z68.1 Body mass index [BMI] 19.9 or less, adult; D64.9 Anemia, unspecified; I12.9 Hypertensive chronic kidney disease with stage 1 through stage 4 chronic kidney disease, or unspecified chronic kidney disease; I34.0 Nonrheumatic mitral (valve) insufficiency; N18.3 Chronic kidney disease, stage 3 (moderate); Z53.9 Procedure and treatment not carried out, unspecified reason; Z80.1 Family history of malignant neoplasm of trachea, bronchus and lung; Z82.49 Family history of ischemic heart disease and other diseases of the circulatory system; Z87.440 Personal history of urinary (tract) infections; Z90.5 Acquired absence of kidney; Z82.3 Family history of stroke; Z79.899 Other long term (current) drug therapy; Z20.828 Contact with and (suspected) exposure to other viral communicable diseases
CPT/HCPCS: 36415; 80048; 80053; 81001; 82962; 85007; 85025; 85027; 85610; 85730; 86850; 86900; 86901; 87086; G0378; J0885; J1956; J3490; Q4081

== ENCOUNTER 2020-03-22 10:20 | Inpatient (IN) | payer MEDICARE ==
[~2020-03-22] VITALS: Ht 157.5 cm; Wt 53.0 kg
[2020-03-22] MEDS ORDERED: LIDOCAINE W/ EPINEPHRINE 1 % INJ 30ML ONE (11:54)
[2020-03-22] MEDS ORDERED: MANNITOL FTV 25% 12.5 GM/50 ML 0 ML IV ONE (11:55)
[2020-03-22] MEDS ORDERED: BUPIVACAINE 0.25% INJ 50ML VIAL ONE (11:55)
[2020-03-22] MEDS ORDERED: LIDOCAINE W/ EPINEPHRINE 1% 20ML VIAL ONE (11:55)
[2020-03-22] MEDS ORDERED: LIDOCAINE 1% (LOCAL ANESTH.) PF 5ml SDV ONE (12:54)
[2020-03-22] MEDS ORDERED: SUCCINYLCHOLINE CHLORIDE 20 MG/ML 10ML VIAL IV ONE (12:54)
[2020-03-22] MEDS ORDERED: ETOMIDATE (2MG/ML) 20ML VIAL IV ONE ×2 (12:58→14:43)
[2020-03-22] MEDS ORDERED: ROCURONIUM 10MG/ML 10ML VIAL IV ONE ×2 (13:00→14:43)
[2020-03-22] MEDS ORDERED: PHENYLEPHRINE HCL 10 MG/ML VL ONE (13:01)
[2020-03-22] MEDS ORDERED: SODIUM CHLORIDE LOCK 10 ML ONE (13:01)
[2020-03-22] MEDS ORDERED: SODIUM CHLORIDE LOCK 20 ML ONE (14:43)
[2020-03-22] MEDS ORDERED: fentaNYL CITRATE 5 ML ONE (14:43)
[2020-03-22] MEDS ORDERED: fentaNYL CITRATE 100 MCG/2 ML VL ONE (14:43)
[2020-03-22] MEDS ORDERED: MIDAZOLAM HCL 1MG/1ML-2 ML VIAL ONE (14:43)
[2020-03-22] MEDS ORDERED: MORPHINE SULF(PF) 0.5MG/ML 10ML VIAL ONE (14:43)
[2020-03-22] MEDS: cefOXitin 2GM/100ML 100 ML IV ONE ×2 (14:55→14:56)
[2020-03-22] MEDS ORDERED: NEOSTIGMINE 1 MG/ML INJ (10mg/10ML VIAL) ONE (16:27)
[2020-03-22] MEDS ORDERED: GLYCOPYRROLATE 0.2 MG/ML 1ML VIAL ONE (16:27)
[2020-03-22] MEDS ORDERED: NEOMYCIN-BACITRACIN-POLYM 15GM TOP OINT TOP ONE (17:06)
[2020-03-22] MEDS: D5W/SOD CHL 0.45% 1,000 ML IV SCH (17:07)
[2020-03-22] MEDS ORDERED: NITROGLYCERIN 0.4 MG SL TAB SL PRN (17:15)
[2020-03-22] MEDS ORDERED: MORPHINE SULF INJ 2 MG/ML SYRINGE 1ML IV PRN ×2 (17:15→19:30)
[2020-03-22] MEDS ORDERED: HYDROmorphone HCL 2 MG/ML VL IV PRN ×2 (17:15→18:30)
[2020-03-22] MEDS ORDERED: diphenhdrAMINE HCL 50 MG/1 ML VL IV PRN (17:15)
[2020-03-22] MEDS ORDERED: ACETAMINOPHEN/CODEINE#3 (300/30mg) TAB PO PRN (17:15)
[2020-03-22] MEDS ORDERED: MORPHINE SULFATE 4 MG/ML SYR/VIAL IV PRN (18:30)
[2020-03-22] MEDS ORDERED: ONDANSETRON HCL 4 MG/2 ML VIAL IV PRN (18:30)
[2020-03-22] MEDS ORDERED: ACETAMINOPHEN IV 100 ML IV ONE (19:14)
[2020-03-22] MEDS ORDERED: ACETAMINOPHEN IV 1000 MG/100ML (10MG/ML) IV ONE (19:22)
[2020-03-22] MEDS: METOCLOPRAMIDE HCL 5MG/ml INJ 2ml VIAL IV ONE ×2 (19:35→19:36)
[2020-03-22] MEDS ORDERED: METOCLOPRAMIDE HCL 5MG/ml INJ 2ml VIAL ONE (19:36)
--- NOTE | 2020-03-22 20:51 | NUR ---
assumed care of pt, s/p surgical proceedure. who is alert and oriented, no c/o pain or discomfort. Pt has [address], 1 to rt lower abdomen, 1 to umbilical area and 3rd is midline above umbilicus. F/c patent to gravity, 2 IV both 20g, 1 to rt ac, the other is left fa. both flush freely, sites benign. Deep hose to bilateral lower extremities.
[2020-03-22 21:20] LABS: BUN/Creatinine Ratio 18.2; Calcium 8.2 mg/dL (8.5-10.1); Potassium 3.2 mmol/L (3.5-5.1)
[2020-03-22 22:34] VITALS: BP 134/56
[2020-03-22] MEDS: ZOLPIDEM TARTRATE 5 MG TAB PO SCH (22:42)
[2020-03-22] MEDS: ONDANSETRON HCL 4 MG/2 ML VIAL IV PRN (22:43)
[2020-03-23] MEDS: D5W/SOD CHL 0.45% 1,000 ML IV SCH ×3 (01:07→17:07)
[2020-03-23] MEDS: HYDROmorphone HCL 2 MG/ML VL IV PRN ×3 (03:53→16:22)
[2020-03-23] MEDS: ONDANSETRON HCL 4 MG/2 ML VIAL IV PRN ×2 (03:53→16:22)
--- NOTE | 2020-03-23 05:15 | NUR ---
call out to hospitalist r/t pt c/o indigestion, earlier pt c/o nausea and has been medicated 2 x this shift for nausea, no vomitus.
[2020-03-23 05:30] VITALS: BP 121/46
--- NOTE | 2020-03-23 05:39 | NUR ---
hospitalist returned call, no new orders at this time.
--- NOTE | 2020-03-23 06:42 | NUR ---
pt has been made aware that there are no new orders for her indigestion at this time
--- NOTE | 2020-03-23 07:30 | NUR ---
Opening shift note Patient AOx4. Surgical sight assessed minimal serosanguineous discharge noted. Patient updated on POC an do to call for assistance as needed. Deep hose in place. bed in low locked position. Ley patent, secured below waistline, draining clear yellow urine. Will continue care.
[2020-03-23 09:00] VITALS: BP 153/75
[2020-03-23] MEDS: LORATADINE 10 MG TAB PO SCH (10:35)
[2020-03-23] MEDS: hydrOXYchloroQUINE SULFATE 200 MG TAB PO SCH (10:35)
[2020-03-23] MEDS: VALSARTAN 80 MG TAB PO SCH (10:36)
[2020-03-23 13:00] VITALS: BP 122/52
[2020-03-23 17:00] VITALS: BP 134/78
--- NOTE | 2020-03-23 17:00 | NUR ---
paged back Hold order for 60 meq of potassium at this time per Dr. Pérez.
[2020-03-23 17:46] LABS: Basophils # (auto) 0 10 ^3/uL (0-0.2); Basophils % (auto) 0.4 % (0.0-2.0); Eosinophils # (auto) 0.2 10 ^3/uL (0-0.8); Eosinophils % (auto) 2.7 % (0.0-7.0); Hematocrit 25.7 % (36.0-46.0); Hemoglobin 8.5 g/dL (12.2-16.2); Lymphocytes # (auto) 0.7 10 ^3/uL (0.4-5.4); Lymphocytes % (auto) 9.9 % (10.0-50.0); Mean Corpuscular Hemoglobin 29.8 pg (28.0-32.0); Mean Corpuscular Volume 90.3 fL (80.0-100.0); Monocytes # (auto) 0.7 10 ^3/uL (0-1.3); Monocytes % (auto) 10.3 % (0.0-12.0); Neutrophils # (auto) 5.3 10 ^3/uL (1.6-8.6); Neutrophils % (auto) 76.7 % (37.0-80.0); Platelet Count (auto) 240 10^3/uL (140-450); Red Blood Cells 2.85 10^6/uL (4.0-5.20); Red Cell Distribution Width 14.8 % (11.8-14.3); White Blood Cell 6.9 10^3/uL (4.4-10.8)
--- NOTE | 2020-03-23 18:00 | NUR ---
Potassium Held/ MD paged Order for 60 meq of potassium held at this time as K+ at 1739 resulted at 3.9 MD paged at this time. Awaiting call back from .
[2020-03-23 18:09] LABS: Albumin 2.2 g/dL (3.4-5.0); Potassium 3.9 mmol/L (3.5-5.1)
[2020-03-23 18:12] LABS: Bilirubin, Total 0.5 mg/dL (0.2-1.0)
[2020-03-23] MEDS: POTASSIUM CHL 20MEQ/100ML 100 ML IV SCH (19:00)
[2020-03-23] MEDS: ZOLPIDEM TARTRATE 5 MG TAB PO SCH (21:59)
[2020-03-23 22:00] VITALS: BP 145/57
[2020-03-24] VITALS (9 sets, daily range): BP systolic 129–161; BP diastolic 60–74
[2020-03-24] MEDS: HYDROmorphone HCL 2 MG/ML VL IV PRN ×3 (00:18→13:00)
--- NOTE | 2020-03-24 00:48 | NUR ---
Message left via telephone for Dr. Pérez re. infusion of PRBCs as no consent yet signed by or pt.
--- NOTE | 2020-03-24 00:57 | NUR ---
responded back via telephone to hold transfusion until later in a.m.
[2020-03-24] MEDS: D5W/SOD CHL 0.45% 1,000 ML IV SCH ×3 (01:07→17:07)
[2020-03-24] MEDS: ONDANSETRON HCL 4 MG/2 ML VIAL IV PRN ×2 (05:59→13:00)
[2020-03-24] MEDS ORDERED: METO25TA5 PO (08:26)
[2020-03-24] MEDS ORDERED: NITR-52 PO (08:28)
[2020-03-24] MEDS: LORATADINE 10 MG TAB PO SCH (10:00)
[2020-03-24] MEDS: hydrOXYchloroQUINE SULFATE 200 MG TAB PO SCH (10:00)
[2020-03-24] MEDS: VALSARTAN 80 MG TAB PO SCH (10:01)
--- NOTE | 2020-03-24 12:30 | NUR ---
paged Dr. Pérez paged. Voicemail left regarding patient refusing DC at this time. Awaiting call back.
--- NOTE | 2020-03-24 14:24 | NUR ---
paged back Cancel DC order per Dr. Pérez. Will implement orders at this time.
--- NOTE | 2020-03-24 17:15 | NUR ---
paged Dr. Pérez paged regarding elevated BP of 161/74 and no PRN antihypertensive on EMAR. Awaiting call back.
--- NOTE | 2020-03-24 17:24 | NUR ---
Blood consents signed by MD/new orders Dr. Pérez at bedside. Risks and benefits regarding blood transfusion explained to patient at this time. Patient verbalized understanding and wishes to precede with transfusion. Consents signed at this time by patient, MD, and this RN as a witness. Per MD to infuse 1 unit of packed RBC as soon as possible. Existing order for transfusion on EMAR placed on 03/23/2020. Per no new order necessary at this time as transfusion was placed on HOLD last night do to consents not being signed. New orders received at this time for PRN antihypertensive, and scheduled BP medication. Please check EMAR for more information regarding new orders. Will implement new orders at this time and continue care.
[2020-03-24] MEDS: cloNIDine HCL 0.1 MG TAB PO PRN (17:50)
--- NOTE | 2020-03-24 18:00 | NUR ---
IV insertion IV access obtained, via clean sterile technique by inserting 22 gauge catheter at forearm after 1 attempt. IV secured properly. No trauma to site. Patient tolerated well.
--- NOTE | 2020-03-24 18:38 | NUR ---
Blood Transfusion initiated Blood transfusion initiated at this time after risks and benefits explained by MD and reinforced by this RN. VS: T- 98.8, HR-93, BP-- 144/67, O2- 93% on room air.
--- NOTE | 2020-03-24 19:20 | NUR ---
Closing shift note Patient currently resting in bed AOx4. Transfusing 1 unit of packed RBC at this time. No s/s of distress noted. Endorsed care to Jayna PAGAN.
[2020-03-24] MEDS: ZOLPIDEM TARTRATE 5 MG TAB PO SCH (22:03)
[2020-03-24] MEDS: METOPROLOL TARTRATE 25 MG TAB PO SCH (22:04)
[2020-03-25] MEDS: D5W/SOD CHL 0.45% 1,000 ML IV SCH ×3 (01:07→16:10)
[2020-03-25 05:00] VITALS: BP 126/65
[2020-03-25 05:58] LABS: Basophils # (auto) 0 10 ^3/uL (0-0.2); Basophils % (auto) 0.7 % (0.0-2.0); Eosinophils # (auto) 0.8 10 ^3/uL (0-0.8); Eosinophils % (auto) 12.1 % (0.0-7.0); Hematocrit 25.5 % (36.0-46.0); Hemoglobin 8.7 g/dL (12.2-16.2); Lymphocytes # (auto) 0.9 10 ^3/uL (0.4-5.4); Lymphocytes % (auto) 12.7 % (10.0-50.0); Mean Corpuscular Hemoglobin 30.8 pg (28.0-32.0); Mean Corpuscular Hgb Conc. 34.3 g/dL (32.0-36.0); Mean Corpuscular Volume 89.7 fL (80.0-100.0); Monocytes # (auto) 0.5 10 ^3/uL (0-1.3); Monocytes % (auto) 7.5 % (0.0-12.0); Neutrophils # (auto) 4.6 10 ^3/uL (1.6-8.6); Platelet Count (auto) 213 10^3/uL (140-450); Red Blood Cells 2.84 10^6/uL (4.0-5.20); Red Cell Distribution Width 14.5 % (11.8-14.3); White Blood Cell 6.8 10^3/uL (4.4-10.8)
[2020-03-25 06:17] LABS: Potassium 3.7 mmol/L (3.5-5.1)
[2020-03-25 06:40] LABS: BUN/Creatinine Ratio 20.3; Bilirubin, Total 0.6 mg/dL (0.2-1.0); Calcium 8.1 mg/dL (8.5-10.1); Total Protein 5.3 g/dL (6.4-8.2)
--- NOTE | 2020-03-25 08:15 | NUR ---
Opening Shift Note Assumed care of patient, awake, and alert. No S/S of distress/SOB or pain. Bed in lowest/locked position, bed rails up x2, call light within reach. Instructed on POC and to call for assist PRN. Will continue to monitor for changes Q1hr and PRN.
[2020-03-25] MEDS: METOPROLOL TARTRATE 25 MG TAB PO SCH ×2 (08:43→22:07)
[2020-03-25] MEDS: LORATADINE 10 MG TAB PO SCH (08:43)
[2020-03-25] MEDS: hydrOXYchloroQUINE SULFATE 200 MG TAB PO SCH (08:43)
[2020-03-25] MEDS: HYDROmorphone HCL 2 MG/ML VL IV PRN ×2 (08:51→17:27)
[2020-03-25 09:00] VITALS: BP 145/72
--- NOTE | 2020-03-25 12:03 | NUR ---
Nutrition Assessment Notes please see attached link for complete assessment [employer] needs BW 53 [id number] kcal (25-30 kcal/kg BW), Est protein needs: 53-69 g (1.0-1.3g/kg BW r/t hypoalb). Will reassess prn. Addendum: 03/25/20 at [address] Amended: Links added.
[2020-03-25 12:46] VITALS: BP 116/54
[2020-03-25 17:24] VITALS: BP 144/77
[2020-03-25] MEDS: NEOSTIGMINE 1 MG/ML INJ (10mg/10ML VIAL) SC SCH ×2 (17:26→22:07)
--- NOTE | 2020-03-25 19:44 | NUR ---
Opening Shift Note Received report and assumed care of patient. Patient is awake and alert. No signs or symptoms of distress noted, patient currently denies pain. Instructed patient on plan of care and to call for assistance as needed. Will continue to monitor.
--- NOTE | 2020-03-25 20:40 | NUR ---
IV removal/insertion 22g IV to the Right forearm infiltrated and 20g IV to the Right AC leaking. Discontinued IVs with clean technique, catheter tips fully intact. Pressure dressing applied to site. NOTE:Inserted 22g IV to the Left wrist. Patient tolerated well.
[2020-03-25 22:00] VITALS: BP 153/70
[2020-03-25] MEDS: ZOLPIDEM TARTRATE 5 MG TAB PO SCH (22:07)
--- NOTE | 2020-03-25 22:07 | NUR ---
Patient Refused Medication Patient refusing neostigmine injection, patient states she feels like she may have bowel movement. Educated patient regarding risks and benefits of medication. Patient verbalized understanding, continues to refuse, states she will take AM dose. Will continue to monitor.
[2020-03-26] MEDS: NEOSTIGMINE 1 MG/ML INJ (10mg/10ML VIAL) SC SCH ×2 (02:00→05:43)
[2020-03-26 05:00] VITALS: BP 151/75
[2020-03-26 08:23] LABS: Basophils # (auto) 0 10 ^3/uL (0-0.2); Basophils % (auto) 0.6 % (0.0-2.0); Eosinophils # (auto) 0.9 10 ^3/uL (0-0.8); Eosinophils % (auto) 13.1 % (0.0-7.0); Hematocrit 29.2 % (36.0-46.0); Hemoglobin 10.2 g/dL (12.2-16.2); Lymphocytes # (auto) 0.8 10 ^3/uL (0.4-5.4); Lymphocytes % (auto) 12.2 % (10.0-50.0); Mean Corpuscular Hgb Conc. 34.8 g/dL (32.0-36.0); Mean Corpuscular Volume 89.1 fL (80.0-100.0); Monocytes # (auto) 0.5 10 ^3/uL (0-1.3); Monocytes % (auto) 7.6 % (0.0-12.0); Neutrophils # (auto) 4.6 10 ^3/uL (1.6-8.6); Neutrophils % (auto) 66.5 % (37.0-80.0); Platelet Count (auto) 259 10^3/uL (140-450); Red Blood Cells 3.28 10^6/uL (4.0-5.20); Red Cell Distribution Width 14.5 % (11.8-14.3); White Blood Cell 6.9 10^3/uL (4.4-10.8)
[2020-03-26 08:33] LABS: Albumin 2.1 g/dL (3.4-5.0); Calcium 8.3 mg/dL (8.5-10.1); Potassium 3.3 mmol/L (3.5-5.1)
[2020-03-26 08:37] LABS: BUN/Creatinine Ratio 16.7; Bilirubin, Total 0.5 mg/dL (0.2-1.0); Total Protein 5.7 g/dL (6.4-8.2)
[2020-03-26 09:00] VITALS: BP_SYST 132; BP_SYST 150; BP_DIAS 75; BP_DIAS 86
[2020-03-26] MEDS: hydrOXYchloroQUINE SULFATE 200 MG TAB PO SCH (09:45)
[2020-03-26] MEDS: LORATADINE 10 MG TAB PO SCH (09:45)
[2020-03-26] MEDS: METOPROLOL TARTRATE 25 MG TAB PO SCH ×2 (09:45→21:56)
[2020-03-26] MEDS: HYDROmorphone HCL 2 MG/ML VL IV PRN (12:05)
--- NOTE | 2020-03-26 12:30 | NUR ---
Prune juice given for constipation.
[2020-03-26 13:00] VITALS: BP 142/79
--- NOTE | 2020-03-26 13:23 | NUR ---
Dr. Pérez paged regarding K 3.3 and last BM 03/22. Awaiting to call back.
--- NOTE | 2020-03-26 13:30 | NUR ---
Received new orders from Dr. Pérez, noted and carried it out.
[2020-03-26] MEDS: POTASSIUM CHL 20MEQ/100ML 100 ML IV SCH ×2 (13:58→16:45)
[2020-03-26] MEDS ORDERED: LACTULOSE 20Gm/30ML SOLN PO PRN (14:00)
--- NOTE | 2020-03-26 14:04 | NUR ---
Patient ambulates with PT using a walker. Will DC mark per MD order.
[2020-03-26] MEDS: ONDANSETRON HCL 4 MG/2 ML VIAL IV PRN (14:11)
--- NOTE | 2020-03-26 14:20 | NUR ---
Mark catheter dc'd Order to discontinue mark catheter. Mark dc'd with clean technique following deflation of balloon. Patient tolerated well with no complaints of pain. Continue care.
--- NOTE | 2020-03-26 14:30 | NUR ---
Pt refused SCD.
[2020-03-26] MEDS: cloNIDine HCL 0.1 MG TAB PO PRN (16:46)
[2020-03-26 17:00] VITALS: BP 169/76
--- NOTE | 2020-03-26 17:00 | NUR ---
Patient urinated a small amount of clear urine.
[2020-03-26 18:54] VITALS: BP 161/84
[2020-03-26] MEDS: ZOLPIDEM TARTRATE 5 MG TAB PO SCH (21:56)
[2020-03-26 22:00] VITALS: BP 146/91
[2020-03-27 05:00] VITALS: BP 146/86
[2020-03-27 09:00] VITALS: BP 154/74
[2020-03-27] MEDS: LORATADINE 10 MG TAB PO SCH (09:27)
[2020-03-27] MEDS: hydrOXYchloroQUINE SULFATE 200 MG TAB PO SCH (09:27)
[2020-03-27] MEDS: METOPROLOL TARTRATE 25 MG TAB PO SCH ×2 (09:28→22:36)
[2020-03-27] MEDS ORDERED: LACTULOSE 20Gm/30ML SOLN PO ONE (09:45)
[2020-03-27 11:00] LABS: Basophils # (auto) 0.1 10 ^3/uL (0-0.2); Basophils % (auto) 0.9 % (0.0-2.0); Eosinophils # (auto) 0.6 10 ^3/uL (0-0.8); Eosinophils % (auto) 8.9 % (0.0-7.0); Hematocrit 29.5 % (36.0-46.0); Hemoglobin 9.8 g/dL (12.2-16.2); Lymphocytes # (auto) 0.8 10 ^3/uL (0.4-5.4); Lymphocytes % (auto) 10.9 % (10.0-50.0); Mean Corpuscular Hemoglobin 30.2 pg (28.0-32.0); Mean Corpuscular Hgb Conc. 33.2 g/dL (32.0-36.0); Mean Corpuscular Volume 90.9 fL (80.0-100.0); Monocytes # (auto) 0.6 10 ^3/uL (0-1.3); Monocytes % (auto) 8.7 % (0.0-12.0); Neutrophils # (auto) 5.1 10 ^3/uL (1.6-8.6); Neutrophils % (auto) 70.6 % (37.0-80.0); Platelet Count (auto) 263 10^3/uL (140-450); Red Blood Cells 3.24 10^6/uL (4.0-5.20); Red Cell Distribution Width 14.6 % (11.8-14.3); White Blood Cell 7.2 10^3/uL (4.4-10.8)
[2020-03-27 11:22] LABS: BUN/Creatinine Ratio 16.2; Calcium 8.4 mg/dL (8.5-10.1); Potassium 3.8 mmol/L (3.5-5.1)
[2020-03-27 13:00] VITALS: BP 134/57
[2020-03-27] MEDS: HYDROmorphone HCL 2 MG/ML VL IV PRN (14:17)
[2020-03-27] MEDS: ONDANSETRON HCL 4 MG/2 ML VIAL IV PRN (14:18)
[2020-03-27 17:00] VITALS: BP 170/70
[2020-03-27] MEDS: cloNIDine HCL 0.1 MG TAB PO PRN (17:14)
[2020-03-27] MEDS ORDERED: OXYCODONE W/ ACETAMINOPHEN 5/325MG TABLET PO PRN (17:15)
--- NOTE | 2020-03-27 19:31 | NUR ---
Opening Shift Note Received report and assumed care of patient. Patient is awake and alert. No signs or symptoms of distress noted. Instructed patient on plan of care and to call for assistance as needed. Will continue to monitor.
[2020-03-27 22:00] VITALS: BP 118/59
[2020-03-27] MEDS: ZOLPIDEM TARTRATE 5 MG TAB PO SCH (22:36)
[2020-03-28 05:00] VITALS: BP 138/68
[2020-03-28 08:48] VITALS: BP 136/61
--- NOTE | 2020-03-28 09:40 | NUR ---
Pain Patient complaining of chronic back pain rated 5/10. Patient currently sitting on chair. Per patient sitting on a 90 degree angle usually makes her back hurt. Patient states she wishes to stay in chair for a little longer to stretch her back but is requesting pain medication. Will medicate patient with Percocet tablet at this time per MD orders and reassess pain in an hour.
[2020-03-28] MEDS: METOPROLOL TARTRATE 25 MG TAB PO SCH (09:41)
[2020-03-28] MEDS: LORATADINE 10 MG TAB PO SCH (09:41)
[2020-03-28] MEDS: hydrOXYchloroQUINE SULFATE 200 MG TAB PO SCH (09:41)
[2020-03-28] MEDS: POTASSIUM CHL 20MEQ/100ML 100 ML IV SCH (09:42)
[2020-03-28] MEDS ORDERED: LACTULOSE 20Gm/30ML SOLN PO PRN (10:00)
--- NOTE | 2020-03-28 10:55 | NUR ---
RE: Pain Patient states pain was unrelieved with Percocet tablet. Patient now states her back pain is at 7/10 and is requesting additional pain medication. Will medicate with Dilaudid 0.4 mg IV at this time per MD orders and continue to assess pain.
[2020-03-28] MEDS: HYDROmorphone HCL 2 MG/ML VL IV PRN (11:00)
[2020-03-28 12:46] VITALS: BP 134/56
[2020-03-28 15:05] VITALS: BP 134/56
--- NOTE | 2020-03-28 16:20 | NUR ---
Discharge instructions given as ordered. Encourage to follow up with PMD as instructed. All questions and concerns addressed. Patient verbalized understanding. IV removed with catheter intact, pressure dressing applied. Telemetry unit returned to ICU. Patient taken to vehicle via wheelchair with all personal belongings, accompanied by this RN. No distress noted at time of departure.
== END 2020-03-28 16:20 | disposition home or self-care (01) | DRG 656 ==
LOC: SUR 10:20 → TELE-WESTW 10:21
PROVIDERS: ADMIT Urology; ATTEND Urology
PROC: 0TB60ZZ Excision of Right Ureter, Open Approach (ICD-10-PCS; 2020-03-22)
PROC: 0TJ54ZZ Inspection of Kidney, Percutaneous Endoscopic Approach (ICD-10-PCS; 2020-03-22)
PROC: 8E0W4CZ Robotic Assisted Procedure of Trunk Region, Percutaneous Endoscopic Approach (ICD-10-PCS; 2020-03-22)
PROC: 07TD4ZZ Resection of Aortic Lymphatic, Percutaneous Endoscopic Approach (ICD-10-PCS; 2020-03-22)
PROC: 0TT00ZZ Resection of Right Kidney, Open Approach (ICD-10-PCS; principal; 2020-03-22 14:58)
PROC: 30233N1 Transfusion of Nonautologous Red Blood Cells into Peripheral Vein, Percutaneous Approach (ICD-10-PCS; 2020-03-24)
DX: C79.01 Secondary malignant neoplasm of right kidney and renal pelvis (principal); E43 Unspecified severe protein-calorie malnutrition; I50.33 Acute on chronic diastolic (congestive) heart failure; C68.0 Malignant neoplasm of urethra; K56.7 Ileus, unspecified; C66.9 Malignant neoplasm of unspecified ureter; I13.0 Hypertensive heart and chronic kidney disease with heart failure and stage 1 through stage 4 chronic kidney disease, or unspecified chronic kidney disease; R64 Cachexia; E87.1 Hypo-osmolality and hyponatremia; G89.4 Chronic pain syndrome; J44.9 Chronic obstructive pulmonary disease, unspecified; N18.3 Chronic kidney disease, stage 3 (moderate); D64.9 Anemia, unspecified; E87.6 Hypokalemia; Z20.828 Contact with and (suspected) exposure to other viral communicable diseases; I25.10 Atherosclerotic heart disease of native coronary artery without angina pectoris; Z82.49 Family history of ischemic heart disease and other diseases of the circulatory system; Z82.3 Family history of stroke; Z80.1 Family history of malignant neoplasm of trachea, bronchus and lung; Z92.21 Personal history of antineoplastic chemotherapy; Z92.3 Personal history of irradiation; Z90.710 Acquired absence of both cervix and uterus; Z87.440 Personal history of urinary (tract) infections; Z88.6 Allergy status to analgesic agent; Z88.8 Allergy status to other drugs, medicaments and biological substances; Z68.21 Body mass index [BMI] 21.0-21.9, adult; Z79.899 Other long term (current) drug therapy
CPT/HCPCS: 36415; 74018; 80048; 80053; 85025; 86850; 86900; 86901; 86920; 87426; 97116; 97163; 97530; A4565; G0378; J0131; J0330; J0694; J2250; J2405; J3480; J3490; J7060

== ENCOUNTER → 2020-04-20 | Outpatient (CLI) | payer MEDICARE ==
[~2020-04-20] MED LIST changes: +METO25TA5 PO; +NITR-52 PO; -VALS1TAB58 PO
[2020-04-20 15:57] LABS: Urine Blood Negative /uL (Negative); Urine Specific Gravity 1.013 (1.001-1.035)
== END | disposition home or self-care (01) ==
LOC: LAB 14:06
PROVIDERS: ATTEND Internal Medicine Cardiovascular Disease
DX: N39.0 Urinary tract infection, site not specified (principal)
CPT/HCPCS: 81003

== ENCOUNTER 2020-09-05 16:22 | Inpatient (IN) | payer MEDICARE ==
[~2020-09-05] VITALS: Ht 157.5 cm; Wt 50.0 kg
[~2020-09-05 16:22] MED LIST changes: -ZOLP-158 PO; +ZOLP5TAB PO
[2020-09-05] MEDS ORDERED: SODIUM CHLORIDE 0.9% 1,000 ML IV ONE (16:45)
[2020-09-05 19:30] LABS: Basophils # (auto) 0.1 10 ^3/uL (0-0.2); Eosinophils # (auto) 0.2 10 ^3/uL (0-0.8); Eosinophils % (auto) 3.1 % (0.0-7.0); Hematocrit 25.7 % (36.0-46.0); Lymphocytes # (auto) 1.1 10 ^3/uL (0.4-5.4); Lymphocytes % (auto) 18.6 % (10.0-50.0); Mean Corpuscular Hemoglobin 31.5 pg (28.0-32.0); Mean Corpuscular Hgb Conc. 35.2 g/dL (32.0-36.0); Mean Corpuscular Volume 89.6 fL (80.0-100.0); Monocytes # (auto) 0.5 10 ^3/uL (0-1.3); Monocytes % (auto) 9.1 % (0.0-12.0); Neutrophils # (auto) 4.1 10 ^3/uL (1.6-8.6); Neutrophils % (auto) 68.2 % (37.0-80.0); Nucleated Red Blood Cells % 0.1 %; Platelet Count (auto) 217 10^3/uL (140-450); Red Blood Cells 2.87 10^6/uL (4.0-5.20)
[2020-09-05 19:49] LABS: Alanine Aminotransferase 14 U/L (13-56); Albumin 2.7 g/dL (3.4-5.0); Anion Gap 8 (5-15); Aspartate Aminotransferase 13 U/L (15-37); BUN/Creatinine Ratio 26.4; Blood Urea Nitrogen 23 mg/dL (7-18); Calcium 8.5 mg/dL (8.5-10.1); Carbon Dioxide 22 mmol/L (21-32); Chloride 103 mmol/L (98-107); GFR African American 79 mL/min; GFR Non-African American 66 mL/min; Glucose 90 mg/dL (74-106); Potassium 3.7 mmol/L (3.5-5.1); Sodium 133 mmol/L (136-145)
[2020-09-05 19:54] LABS: Alkaline Phosphatase 82 U/L (45-117); Bilirubin, Total 0.4 mg/dL (0.2-1.0); Total Protein 6.5 g/dL (6.4-8.2)
[2020-09-06 02:24] LABS: Urine Bacteria FEW /hpf (None Seen); Urine Blood Negative /uL (Negative); Urine Mucus FEW (None Seen); Urine Specific Gravity 1.012 (1.001-1.035); Urine WBC 8 /hpf (0 - 5)
[2020-09-06] MEDS ORDERED: HYDROmorphone HCL 2 MG/ML VL IV PRN (08:00)
[2020-09-06] MEDS ORDERED: SODIUM CHLORIDE 0.9% 1,000 ML IV ONE (08:00)
[2020-09-06] MEDS ORDERED: cefTRIAXone 1GM/50ML D5W 50 ML IV ONE (08:00)
[2020-09-06] MEDS ORDERED: MORPHINE SULF INJ 2 MG/ML SYRINGE 1ML IV PRN (08:30)
[2020-09-06] MEDS ORDERED: NITROGLYCERIN 0.4 MG SL TAB SL PRN (08:30)
[2020-09-06] MEDS: PIPERACILLIN-TAZOB 3.375GM 100 ML IV SCH ×2 (10:31→18:40)
[2020-09-06 11:23] VITALS: BP 128/59
[2020-09-06 11:45] VITALS: BP 154/56
[2020-09-06 12:15] VITALS: BP 105/86
[2020-09-06 13:37] LABS: Basophils # (auto) 0 10 ^3/uL (0-0.2); Basophils % (auto) 0.2 % (0.0-2.0); Eosinophils # (auto) 0.3 10 ^3/uL (0-0.8); Eosinophils % (auto) 4.3 % (0.0-7.0); Hematocrit 30.8 % (36.0-46.0); Hemoglobin 10.8 g/dL (12.2-16.2); Lymphocytes # (auto) 1.3 10 ^3/uL (0.4-5.4); Lymphocytes % (auto) 18.2 % (10.0-50.0); Mean Corpuscular Hemoglobin 31.3 pg (28.0-32.0); Mean Corpuscular Volume 89.5 fL (80.0-100.0); Monocytes # (auto) 0.6 10 ^3/uL (0-1.3); Monocytes % (auto) 8.5 % (0.0-12.0); Neutrophils # (auto) 4.7 10 ^3/uL (1.6-8.6); Neutrophils % (auto) 68.8 % (37.0-80.0); Nucleated Red Blood Cells % 0.2 %; Platelet Count (auto) 182 10^3/uL (140-450); Red Blood Cells 3.44 10^6/uL (4.0-5.20); Red Cell Distribution Width 15.2 % (11.8-14.3); White Blood Cell 6.9 10^3/uL (4.4-10.8)
[2020-09-06 13:45] LABS: Albumin 2.7 g/dL (3.4-5.0); Calcium 8.2 mg/dL (8.5-10.1); Potassium 3.8 mmol/L (3.5-5.1)
[2020-09-06 13:50] LABS: BUN/Creatinine Ratio 32.1; Bilirubin, Total 0.7 mg/dL (0.2-1.0); Total Protein 6.9 g/dL (6.4-8.2)
[2020-09-06] MEDS ORDERED: ONDANSETRON HCL 4 MG/2 ML VIAL IV PRN (14:00)
[2020-09-06 14:33] VITALS: BP 166/67
[2020-09-06 19:55] VITALS: BP 135/67
[2020-09-06] MEDS ORDERED: traMADol HCL 50 MG TAB PO PRN (21:45)
[2020-09-06 22:00] VITALS: BP 147/70
[2020-09-06] MEDS: METOPROLOL TARTRATE 25 MG TAB PO SCH (23:17)
[2020-09-06] MEDS: ZOLPIDEM TARTRATE 5 MG TAB PO PRN (23:17)
[2020-09-07] MEDS ORDERED: DOCU-94 PO (00:06)
[2020-09-07] MEDS: PIPERACILLIN-TAZOB 3.375GM 100 ML IV SCH ×3 (01:56→17:53)
[2020-09-07 05:00] VITALS: BP 154/67
[2020-09-07 09:00] VITALS: BP 161/59
[2020-09-07] MEDS: METOPROLOL TARTRATE 25 MG TAB PO SCH ×2 (09:19→22:37)
[2020-09-07 13:00] VITALS: BP 139/60
[2020-09-07 16:58] VITALS: BP 139/66
[2020-09-07 22:00] VITALS: BP 129/48
[2020-09-07] MEDS: ZOLPIDEM TARTRATE 5 MG TAB PO PRN (22:38)
[2020-09-08] MEDS: PIPERACILLIN-TAZOB 3.375GM 100 ML IV SCH ×2 (02:03→09:23)
[2020-09-08 05:00] VITALS: BP 148/71
[2020-09-08 09:00] VITALS: BP 124/54
[2020-09-08] MEDS: METOPROLOL TARTRATE 25 MG TAB PO SCH (09:21)
[2020-09-08 13:00] VITALS: BP 108/41
[2020-09-08 16:03] VITALS: BP 124/54
== END 2020-09-08 17:30 | disposition home health service (06) | DRG 392 ==
LOC: EDBD 16:22 → ER 16:25 → TELE 16:26 → TELE-EAST 09-06 19:44
PROVIDERS: ADMIT Internal Medicine Cardiovascular Disease; ATTEND Internal Medicine Cardiovascular Disease
PROC: 30233N1 Transfusion of Nonautologous Red Blood Cells into Peripheral Vein, Percutaneous Approach (ICD-10-PCS; principal; 2020-09-06)
DX: K52.9 Noninfective gastroenteritis and colitis, unspecified (principal); E87.1 Hypo-osmolality and hyponatremia; C66.9 Malignant neoplasm of unspecified ureter; E44.0 Moderate protein-calorie malnutrition; R64 Cachexia; K80.20 Calculus of gallbladder without cholecystitis without obstruction; R63.0 Anorexia; D64.9 Anemia, unspecified; Z20.822 Contact with and (suspected) exposure to COVID-19; M19.90 Unspecified osteoarthritis, unspecified site; F32.9 Major depressive disorder, single episode, unspecified; I10 Essential (primary) hypertension; J45.909 Unspecified asthma, uncomplicated; Z87.440 Personal history of urinary (tract) infections; Z68.20 Body mass index [BMI] 20.0-20.9, adult; Z90.5 Acquired absence of kidney; Z90.710 Acquired absence of both cervix and uterus; Z90.49 Acquired absence of other specified parts of digestive tract
CPT/HCPCS: 36415; 71045; 74176; 80053; 81001; 84484; 85025; 86850; 86900; 86901; 86920; 87426; 96361; 96365; 97163; G0378; J2543

== ENCOUNTER 2020-09-28 12:52 | Inpatient (IN) | payer MEDICARE ==
[~2020-09-28] VITALS: Ht 157.5 cm; Wt 51.3 kg
[~2020-09-28 12:52] MED LIST changes: -CETI1TAB36 PO; +DOCU-94 PO; -HYDR-4833 PO; -NITR-52 PO
[2020-09-28] MEDS ORDERED: SODIUM CHLORIDE 0.9% 1,000 ML IVB ONE (13:15)
[2020-09-28 13:46] LABS: Basophils # (auto) 0.1 10 ^3/uL (0-0.2); Eosinophils # (auto) 0.2 10 ^3/uL (0-0.8); Eosinophils % (auto) 2.9 % (0.0-7.0); Hematocrit 33.5 % (36.0-46.0); Hemoglobin 11.5 g/dL (12.2-16.2); Lymphocytes # (auto) 1.4 10 ^3/uL (0.4-5.4); Lymphocytes % (auto) 22.1 % (10.0-50.0); Mean Corpuscular Hemoglobin 30.8 pg (28.0-32.0); Mean Corpuscular Hgb Conc. 34.2 g/dL (32.0-36.0); Monocytes # (auto) 0.7 10 ^3/uL (0-1.3); Monocytes % (auto) 10.9 % (0.0-12.0); Neutrophils # (auto) 3.9 10 ^3/uL (1.6-8.6); Neutrophils % (auto) 63.1 % (37.0-80.0); Nucleated Red Blood Cells % 0.2 %; Platelet Count (auto) 244 10^3/uL (140-450); Red Blood Cells 3.72 10^6/uL (4.0-5.20); Red Cell Distribution Width 14.3 % (11.8-14.3); White Blood Cell 6.2 10^3/uL (4.4-10.8)
[2020-09-28 14:04] LABS: Albumin 2.8 g/dL (3.4-5.0); Anion Gap 7 (5-15); Blood Urea Nitrogen 17 mg/dL (7-18); Calcium 8.9 mg/dL (8.5-10.1); Carbon Dioxide 25 mmol/L (21-32); Chloride 99 mmol/L (98-107); Glucose 89 mg/dL (74-106); Potassium 4.1 mmol/L (3.5-5.1); Sodium 131 mmol/L (136-145)
[2020-09-28 14:09] LABS: INR 0.96 (0.9-1.15); Partial Thromboplastin Time 24.1 sec (23.0-31.2)
[2020-09-28 14:10] LABS: Alanine Aminotransferase 15 U/L (13-56); Alkaline Phosphatase 99 U/L (45-117); Aspartate Aminotransferase 13 U/L (15-37); BUN/Creatinine Ratio 20.5; Bilirubin, Total 0.6 mg/dL (0.2-1.0); GFR African American 84 mL/min; GFR Non-African American 69 mL/min; Total Protein 7.2 g/dL (6.4-8.2)
[2020-09-28] MEDS ORDERED: HYDROmorphone HCL 2 MG/ML VL IV PRN (17:45)
[2020-09-28] MEDS ORDERED: NITROGLYCERIN 0.4 MG SL TAB SL PRN (17:45)
[2020-09-28] MEDS ORDERED: MORPHINE SULF INJ 2 MG/ML SYRINGE 1ML IV PRN (17:45)
[2020-09-28 18:09] LABS: Urine Bacteria NONE SEEN /hpf (None Seen); Urine Blood Negative /uL (Negative); Urine Specific Gravity 1.006 (1.001-1.035); Urine WBC 6 /hpf (0 - 5)
[2020-09-28] MEDS ORDERED: cefTRIAXone 1GM/50ML D5W 50 ML IV ONE (19:30)
[2020-09-28] MEDS ORDERED: AMINO ACID INFUSION IN D5W 2,000 ML IV NR (22:00)
[2020-09-28] MEDS ORDERED: ONDANSETRON HCL 4 MG/2 ML VIAL IV SCH (22:00)
[2020-09-28] MEDS ORDERED: TPN PER PHARMACY 0 ML IV SCH (22:15)
[2020-09-28] MEDS ORDERED: AMINO ACID INFUSION IN D10W 2,000 ML IV NR (22:30)
[2020-09-29] MEDS ORDERED: DEXTROSE (50%) 50ML SYRG IV SCH
[2020-09-29] MEDS: ACCU-CHEK COMFORT CURVE STRIP VI SCH ×4 (01:28→17:49)
[2020-09-29 02:39] VITALS: BP 153/78
[2020-09-29 05:00] VITALS: BP 166/90
[2020-09-29] MEDS: InsuLIN REG 1unit/0.01ml Soln (100units/ml) SC SCH ×4 (05:39→17:49)
[2020-09-29 05:55] LABS: Basophils # (auto) 0.1 10 ^3/uL (0-0.2); Basophils % (auto) 1.2 % (0.0-2.0); Eosinophils # (auto) 0.2 10 ^3/uL (0-0.8); Eosinophils % (auto) 4.2 % (0.0-7.0); Hematocrit 30.9 % (36.0-46.0); Hemoglobin 10.8 g/dL (12.2-16.2); Lymphocytes # (auto) 1.3 10 ^3/uL (0.4-5.4); Lymphocytes % (auto) 25.5 % (10.0-50.0); Mean Corpuscular Hemoglobin 31.1 pg (28.0-32.0); Mean Corpuscular Hgb Conc. 35.1 g/dL (32.0-36.0); Mean Corpuscular Volume 88.7 fL (80.0-100.0); Monocytes # (auto) 0.5 10 ^3/uL (0-1.3); Monocytes % (auto) 10.4 % (0.0-12.0); Neutrophils # (auto) 3.1 10 ^3/uL (1.6-8.6); Neutrophils % (auto) 58.7 % (37.0-80.0); Nucleated Red Blood Cells % 0.2 %; Platelet Count (auto) 206 10^3/uL (140-450); Red Blood Cells 3.48 10^6/uL (4.0-5.20); Red Cell Distribution Width 14.1 % (11.8-14.3); White Blood Cell 5.3 10^3/uL (4.4-10.8)
[2020-09-29 06:17] LABS: Potassium 3.4 mmol/L (3.5-5.1)
[2020-09-29 06:31] LABS: Albumin 2.5 g/dL (3.4-5.0); BUN/Creatinine Ratio 20.9; Bilirubin, Total 0.4 mg/dL (0.2-1.0); Calcium 8.5 mg/dL (8.5-10.1); Magnesium 2.3 mg/dL (1.6-2.6); Phosphorus 2.6 mg/dL (2.5-4.90); Pre Albumin 11.8 mg/dL (20.0-40.0); Total Protein 6.5 g/dL (6.4-8.2)
[2020-09-29 08:34] VITALS: BP 152/68
[2020-09-29] MEDS: PANTOPRAZOLE 40 MG/10 ML VIAL INJ IV SCH (09:40)
[2020-09-29] MEDS ORDERED: POTASSIUM PHOSPHATE 22 MEQ in SODIUM CHL 0.9% 100 ML IV ONE (09:45)
[2020-09-29] MEDS ORDERED: HYOSCYAMINE SULF 0.125 MG ODT TAB PO PRN (10:00)
[2020-09-29 12:54] VITALS: BP 154/87
[2020-09-29 17:08] VITALS: BP 143/75
[2020-09-29] MEDS ORDERED: PPN PER PHARMACY IV NR ×9 (20:00)
[2020-09-29 22:00] VITALS: BP 134/65
[2020-09-30] MEDS: ACCU-CHEK COMFORT CURVE STRIP VI SCH ×4 (00:01→18:11)
[2020-09-30 05:00] VITALS: BP 155/68
[2020-09-30] MEDS: InsuLIN REG 1unit/0.01ml Soln (100units/ml) SC SCH ×4 (06:00→18:00)
[2020-09-30 06:03] LABS: Basophils # (auto) 0.1 10 ^3/uL (0-0.2); Basophils % (auto) 1.3 % (0.0-2.0); Eosinophils # (auto) 0.3 10 ^3/uL (0-0.8); Eosinophils % (auto) 5.4 % (0.0-7.0); Hematocrit 29.2 % (36.0-46.0); Hemoglobin 10.3 g/dL (12.2-16.2); Lymphocytes # (auto) 1.1 10 ^3/uL (0.4-5.4); Lymphocytes % (auto) 21.5 % (10.0-50.0); Mean Corpuscular Hemoglobin 31.4 pg (28.0-32.0); Mean Corpuscular Hgb Conc. 35.4 g/dL (32.0-36.0); Mean Corpuscular Volume 88.6 fL (80.0-100.0); Monocytes # (auto) 0.8 10 ^3/uL (0-1.3); Monocytes % (auto) 14.8 % (0.0-12.0); Nucleated Red Blood Cells % 0.1 %; Platelet Count (auto) 189 10^3/uL (140-450); Red Blood Cells 3.29 10^6/uL (4.0-5.20); Red Cell Distribution Width 14.4 % (11.8-14.3); White Blood Cell 5.2 10^3/uL (4.4-10.8)
[2020-09-30 06:19] LABS: Albumin 2.4 g/dL (3.4-5.0); Calcium 8.3 mg/dL (8.5-10.1); Potassium 3.6 mmol/L (3.5-5.1)
[2020-09-30 06:23] LABS: BUN/Creatinine Ratio 29.2; Bilirubin, Total 0.4 mg/dL (0.2-1.0); Phosphorus 3.3 mg/dL (2.5-4.90); Total Protein 6.3 g/dL (6.4-8.2)
[2020-09-30 09:00] VITALS: BP 157/78
[2020-09-30] MEDS: PANTOPRAZOLE 40 MG/10 ML VIAL INJ IV SCH (10:24)
[2020-09-30] MEDS: ONDANSETRON HCL 4 MG/2 ML VIAL IV PRN (10:24)
[2020-09-30 13:00] VITALS: BP 122/71
[2020-09-30 17:00] VITALS: BP 149/78
[2020-09-30] MEDS ORDERED: PPN PER PHARMACY IV NR ×10 (20:00)
[2020-09-30] MEDS: ZOLPIDEM TARTRATE 5 MG TAB PO SCH (21:41)
[2020-09-30 22:00] VITALS: BP 118/52
[2020-10-01 05:00] VITALS: BP 181/68
[2020-10-01 05:48] LABS: Basophils # (auto) 0.1 10 ^3/uL (0-0.2); Basophils % (auto) 2.3 % (0.0-2.0); Eosinophils # (auto) 0.3 10 ^3/uL (0-0.8); Eosinophils % (auto) 5.7 % (0.0-7.0); Hematocrit 28.8 % (36.0-46.0); Lymphocytes # (auto) 1.1 10 ^3/uL (0.4-5.4); Lymphocytes % (auto) 19.1 % (10.0-50.0); Mean Corpuscular Hemoglobin 30.8 pg (28.0-32.0); Mean Corpuscular Hgb Conc. 34.7 g/dL (32.0-36.0); Mean Corpuscular Volume 88.5 fL (80.0-100.0); Monocytes # (auto) 0.8 10 ^3/uL (0-1.3); Monocytes % (auto) 14.8 % (0.0-12.0); Neutrophils # (auto) 3.3 10 ^3/uL (1.6-8.6); Neutrophils % (auto) 58.1 % (37.0-80.0); Platelet Count (auto) 189 10^3/uL (140-450); Red Blood Cells 3.25 10^6/uL (4.0-5.20); Red Cell Distribution Width 14.1 % (11.8-14.3); White Blood Cell 5.7 10^3/uL (4.4-10.8)
[2020-10-01] MEDS: InsuLIN REG 1unit/0.01ml Soln (100units/ml) SC SCH ×5 (06:00→23:50)
[2020-10-01 06:07] LABS: Potassium 4.2 mmol/L (3.5-5.1)
[2020-10-01 06:18] LABS: Albumin 2.4 g/dL (3.4-5.0); BUN/Creatinine Ratio 36.1; Bilirubin, Total 0.5 mg/dL (0.2-1.0); Calcium 8.3 mg/dL (8.5-10.1); Magnesium 2.3 mg/dL (1.6-2.6); Phosphorus 3.7 mg/dL (2.5-4.90); Total Protein 6.3 g/dL (6.4-8.2)
[2020-10-01 06:20] VITALS: BP 162/64
[2020-10-01] MEDS: ACCU-CHEK COMFORT CURVE STRIP VI SCH ×5 (06:24→23:50)
[2020-10-01] MEDS: ceFAZolin 1GM/50ML 50 ML IV SCH ×3 (06:24→21:29)
[2020-10-01 09:00] VITALS: BP 141/73
[2020-10-01] MEDS: ENOXAPARIN SOD 40 MG/0.4 ML SYRINGE SC SCH (09:46)
[2020-10-01] MEDS: PANTOPRAZOLE 40 MG/10 ML VIAL INJ IV SCH (09:46)
[2020-10-01] MEDS: MEGESTROL ACET 400MG/10ML ORAL SUSP PO SCH (09:47)
[2020-10-01 13:00] VITALS: BP 166/86
[2020-10-01 17:00] VITALS: BP 133/63
[2020-10-01] MEDS ORDERED: PPN PER PHARMACY IV NR ×9 (20:00)
[2020-10-01] MEDS: ZOLPIDEM TARTRATE 5 MG TAB PO SCH (21:29)
[2020-10-01 22:00] VITALS: BP 130/66
[2020-10-02 05:00] VITALS: BP 176/80
[2020-10-02] MEDS: InsuLIN REG 1unit/0.01ml Soln (100units/ml) SC SCH ×3 (05:38→17:42)
[2020-10-02] MEDS: ACCU-CHEK COMFORT CURVE STRIP VI SCH ×3 (05:38→17:42)
[2020-10-02] MEDS: ceFAZolin 1GM/50ML 50 ML IV SCH ×3 (05:38→22:10)
[2020-10-02] MEDS: ONDANSETRON HCL 4 MG/2 ML VIAL IV PRN (06:28)
[2020-10-02 07:11] LABS: Albumin 2.6 g/dL (3.4-5.0); Basophils # (auto) 0.2 10 ^3/uL (0-0.2); Basophils % (auto) 2.7 % (0.0-2.0); Calcium 8.7 mg/dL (8.5-10.1); Eosinophils # (auto) 0.3 10 ^3/uL (0-0.8); Eosinophils % (auto) 3.9 % (0.0-7.0); Hematocrit 30.7 % (36.0-46.0); Hemoglobin 10.5 g/dL (12.2-16.2); Lymphocytes # (auto) 1.3 10 ^3/uL (0.4-5.4); Lymphocytes % (auto) 19.6 % (10.0-50.0); Magnesium 2.6 mg/dL (1.6-2.6); Mean Corpuscular Hemoglobin 30.4 pg (28.0-32.0); Mean Corpuscular Hgb Conc. 34.2 g/dL (32.0-36.0); Mean Corpuscular Volume 89.1 fL (80.0-100.0); Neutrophils # (auto) 3.9 10 ^3/uL (1.6-8.6); Neutrophils % (auto) 58.8 % (37.0-80.0); Platelet Count (auto) 220 10^3/uL (140-450); Potassium 4.1 mmol/L (3.5-5.1); Red Blood Cells 3.45 10^6/uL (4.0-5.20); Red Cell Distribution Width 14.7 % (11.8-14.3); White Blood Cell 6.6 10^3/uL (4.4-10.8)
[2020-10-02 07:17] LABS: BUN/Creatinine Ratio 35.3; Bilirubin, Total 0.3 mg/dL (0.2-1.0); Phosphorus 3.7 mg/dL (2.5-4.90); Total Protein 6.9 g/dL (6.4-8.2)
[2020-10-02 08:18] VITALS: BP 174/71
[2020-10-02] MEDS ORDERED: HYDROmorphone HCL 2 MG/ML VL IV PRN (10:00)
[2020-10-02] MEDS: cloNIDine HCL 0.1 MG TAB PO PRN (10:30)
[2020-10-02] MEDS: MEGESTROL ACET 400MG/10ML ORAL SUSP PO SCH (10:30)
[2020-10-02] MEDS: PANTOPRAZOLE 40 MG/10 ML VIAL INJ IV SCH (10:31)
[2020-10-02] MEDS: ENOXAPARIN SOD 40 MG/0.4 ML SYRINGE SC SCH (10:31)
[2020-10-02] MEDS ORDERED: PROMETHAZINE HCL 25 MG/ML 1ML IV PRN (11:15)
[2020-10-02 13:00] VITALS: BP 155/78
[2020-10-02 16:06] VITALS: BP 120/56
[2020-10-02] MEDS ORDERED: PPN PER PHARMACY IV NR ×7 (20:00)
[2020-10-02 21:48] VITALS: BP 109/50
[2020-10-02] MEDS: ZOLPIDEM TARTRATE 5 MG TAB PO SCH (22:00)
[2020-10-03] MEDS: ACCU-CHEK COMFORT CURVE STRIP VI SCH ×4 (00:27→17:59)
[2020-10-03] MEDS: ceFAZolin 1GM/50ML 50 ML IV SCH ×2 (05:50→13:42)
[2020-10-03] MEDS: InsuLIN REG 1unit/0.01ml Soln (100units/ml) SC SCH ×4 (05:50→18:00)
[2020-10-03 06:00] VITALS: BP 100/67
[2020-10-03] MEDS: cloNIDine HCL 0.1 MG TAB PO PRN (06:33)
[2020-10-03 07:50] LABS: Basophils # (auto) 0.2 10 ^3/uL (0-0.2); Basophils % (auto) 3.9 % (0.0-2.0); Eosinophils # (auto) 0.3 10 ^3/uL (0-0.8); Eosinophils % (auto) 5.4 % (0.0-7.0); Hematocrit 26.8 % (36.0-46.0); Hemoglobin 9.4 g/dL (12.2-16.2); Lymphocytes # (auto) 1.1 10 ^3/uL (0.4-5.4); Lymphocytes % (auto) 20.1 % (10.0-50.0); Mean Corpuscular Hemoglobin 31.1 pg (28.0-32.0); Mean Corpuscular Hgb Conc. 35.2 g/dL (32.0-36.0); Mean Corpuscular Volume 88.4 fL (80.0-100.0); Monocytes # (auto) 0.8 10 ^3/uL (0-1.3); Monocytes % (auto) 15.2 % (0.0-12.0); Neutrophils % (auto) 55.4 % (37.0-80.0); Nucleated Red Blood Cells % 0.1 %; Platelet Count (auto) 190 10^3/uL (140-450); Red Blood Cells 3.03 10^6/uL (4.0-5.20); Red Cell Distribution Width 14.4 % (11.8-14.3); White Blood Cell 5.4 10^3/uL (4.4-10.8)
[2020-10-03 08:08] LABS: Albumin 2.2 g/dL (3.4-5.0); Calcium 8.6 mg/dL (8.5-10.1); Magnesium 2.3 mg/dL (1.6-2.6); Potassium 4.2 mmol/L (3.5-5.1)
[2020-10-03 08:11] LABS: BUN/Creatinine Ratio 40.9; Bilirubin, Total 0.3 mg/dL (0.2-1.0); Phosphorus 3.5 mg/dL (2.5-4.90); Total Protein 6.1 g/dL (6.4-8.2)
[2020-10-03 08:30] VITALS: BP 115/53
[2020-10-03] MEDS: ENOXAPARIN SOD 40 MG/0.4 ML SYRINGE SC SCH (09:09)
[2020-10-03] MEDS: PANTOPRAZOLE 40 MG/10 ML VIAL INJ IV SCH (09:09)
[2020-10-03] MEDS: MEGESTROL ACET 400MG/10ML ORAL SUSP PO SCH (09:09)
[2020-10-03] MEDS ORDERED: FLUMAZENIL 0.1 MG/ML INJ 10ML MDV IV ONE (09:55)
[2020-10-03] MEDS ORDERED: NALOXONE HCL 0.4 MG/ML VIAL ONE (09:55)
[2020-10-03] MEDS ORDERED: MIDAZOLAM HCL 5 MG/ML-1ML VIAL ONE (09:55)
[2020-10-03] MEDS ORDERED: diphenhdrAMINE HCL 50 MG/1 ML VL ONE (09:55)
[2020-10-03] MEDS ORDERED: SODIUM CHLORIDE LOCK 10 ML ONE (09:55)
[2020-10-03] MEDS ORDERED: fentaNYL CITRATE 100 MCG/2 ML VL ONE (09:56)
[2020-10-03] MEDS ORDERED: LIDOCAINE VISCOUS 2% 15ML UD ONE (09:56)
[2020-10-03 12:30] VITALS: BP 120/52
[2020-10-03 16:35] VITALS: BP 137/56
[2020-10-03] MEDS ORDERED: PPN PER PHARMACY IV NR ×9 (20:00)
== END 2020-10-03 20:05 | disposition hospice, home (50) | DRG 686 ==
LOC: EDBD 12:52 → ER 12:52 → TELE 17:40 → TELE-WESTW 23:24
PROVIDERS: ADMIT Internal Medicine Cardiovascular Disease; ATTEND Internal Medicine Cardiovascular Disease
PROC: 02HV33Z Insertion of Infusion Device into Superior Vena Cava, Percutaneous Approach (ICD-10-PCS; principal; 2020-09-29)
DX: C66.9 Malignant neoplasm of unspecified ureter (principal); E43 Unspecified severe protein-calorie malnutrition; N13.6 Pyonephrosis; I50.42 Chronic combined systolic (congestive) and diastolic (congestive) heart failure; N30.00 Acute cystitis without hematuria; E87.1 Hypo-osmolality and hyponatremia; R64 Cachexia; R11.2 Nausea with vomiting, unspecified; D64.9 Anemia, unspecified; K57.90 Diverticulosis of intestine, part unspecified, without perforation or abscess without bleeding; R63.0 Anorexia; K52.9 Noninfective gastroenteritis and colitis, unspecified; K80.20 Calculus of gallbladder without cholecystitis without obstruction; E87.6 Hypokalemia; E86.9 Volume depletion, unspecified; I11.0 Hypertensive heart disease with heart failure; J45.909 Unspecified asthma, uncomplicated; K44.9 Diaphragmatic hernia without obstruction or gangrene; F32.9 Major depressive disorder, single episode, unspecified; Z20.822 Contact with and (suspected) exposure to COVID-19; M19.90 Unspecified osteoarthritis, unspecified site; K57.30 Diverticulosis of large intestine without perforation or abscess without bleeding; N32.89 Other specified disorders of bladder; Z80.1 Family history of malignant neoplasm of trachea, bronchus and lung; Z82.3 Family history of stroke; Z85.528 Personal history of other malignant neoplasm of kidney; Z80.3 Family history of malignant neoplasm of breast; Z82.49 Family history of ischemic heart disease and other diseases of the circulatory system; Z85.828 Personal history of other malignant neoplasm of skin; Z86.73 Personal history of transient ischemic attack (TIA), and cerebral infarction without residual deficits; Z87.440 Personal history of urinary (tract) infections; Z90.5 Acquired absence of kidney; Z90.710 Acquired absence of both cervix and uterus; Z92.3 Personal history of irradiation; Z79.899 Other long term (current) drug therapy; Z79.891 Long term (current) use of opiate analgesic; Z79.01 Long term (current) use of anticoagulants; Z90.49 Acquired absence of other specified parts of digestive tract
CPT/HCPCS: 36415; 71045; 74176; 80053; 81001; 82040; 82962; 83735; 83880; 84100; 84478; 84484; 85025; 85610; 85730; 87081; 87426; 93005; 93971; 96361; 96365; C9113; G0378; J0690; J0696; J2250; J2405; J7131